=== PATIENT | male | born 1945 | race Caucasian/White ===

== ENCOUNTER 2023-05-30 16:53 | Emergency (ER) | payer OTHER ==
[~2023-05-30] VITALS: Ht 175.3 cm; Wt 76.2 kg
[~2023-05-30 16:53] MED LIST: AMLODIPINE BESYL5 MG; ATORVASTATIN CA20 MG PO; BACTRIM DS TAB1 EACH PO; CEFACLOR500 MG PO; COZAAR25 MG; HUMALOG100 U/M1 SQ; HUMULIN 70100 UNIT/2; INTESTINEX680 M1 PO; LEVEMIR100 U/ML SQ; LEVOTHYROXINE25 MCG; LOSARTAN-HCTZ1 EAC1; NORVASC2.5 M1; SIMVASTATIN20 MG; TAMS0.4C PO; ZOCOR5 MG
== END 2023-05-30 19:21 | disposition home or self-care (01) ==
LOC: ER 16:53
DX: T85.528A Displacement of other gastrointestinal prosthetic devices, implants and grafts, initial encounter (principal); Z88.8 Allergy status to other drugs, medicaments and biological substances; K59.00 Constipation, unspecified

== ENCOUNTER 2023-07-10 21:38 | Emergency (ER) | payer OTHER ==
[~2023-07-10] VITALS: Ht 175.3 cm; Wt 72.6 kg
== END 2023-07-11 00:11 | disposition home or self-care (01) ==
LOC: ER 21:38
DX: K94.23 Gastrostomy malfunction (principal); Z88.8 Allergy status to other drugs, medicaments and biological substances

== ENCOUNTER 2023-09-12 13:44 | Inpatient (IN) | payer OTHER ==
[~2023-09-12] VITALS: Ht 175.3 cm; Wt 74.8 kg
[2023-09-12] MEDS ORDERED: COZAAR100 MG PO (14:00)
[2023-09-12] MEDS ORDERED: LEVO-T50 MCG PO (14:03)
[2023-09-12] MEDS ORDERED: IRON325 MG PO (14:03)
[2023-09-12] MEDS ORDERED: AMLODIPINE-OLM1 EAC3 PO (14:03)
[2023-09-12] MEDS ORDERED: ATORVASTATIN CA10 MG PO (14:04)
[2023-09-12] MEDS ORDERED: 0.9 % SODIUM CHLORIDE 1,000 ML IV SCH ×2 (14:30→19:45)
[2023-09-12 15:50] LABS: HEMATOCRIT 28.3 % (39.0-48.0); MEAN CELL VOLUME 87.5 fL (80.0-100.00); MEAN CORPUSCULAR HGB CONC 32.2 g/dl (32.0-36.0); PLATELET COUNT 346 K/uL (150-450); RED BLOOD COUNT 3.24 M/uL (4.00-6.00)
[2023-09-12 15:51] LABS: HEMOGLOBIN 9.1 g/dL (13-16.00)
[2023-09-12 16:18] LABS: ALBUMIN 1.8 gm/dL (3.4-5.0); BILIRUBIN TOTAL 0.42 mg/dL (0.3-1.2); CALCIUM 10.7 mg/dL (8.5-10.1); CREATININE SERUM 1.73 mg/dL (0.70-1.30); GFR 38.39; TOTAL PROTEIN 6.8 gm/dL (6.4-8.2)
[2023-09-12 16:44] LABS: POTASSIUM 5.98 mEq/L (3.5-5.1)
[2023-09-12] MEDS ORDERED: PIPERACILLIN/TAZOBACTAM SODIUM 2.25 GM VIAL IV ONE (18:45)
[2023-09-12 18:53] LABS: URINE APPEARANCE Cloudy; URINE BILIRRUBIN Negative (NEGATIVE); URINE BLOOD Large; URINE COLOR Yellow; URINE LEUKOCYTE Large; URINE NITRATE Positive; URINE PROTEIN 30 (NEGATIVE); URINE UROBILINOGEN 0.2 E.U./dl
[2023-09-12 18:55] LABS: URINE BACTERIA 1757.5 uL (0.0-1933); URINE RBC 927.8 uL (0.0-20.8); URINE WBC 1510.2 uL (0.0-23.2)
[2023-09-12 18:58] LABS: URINE EPITHELIAL CELLS 0.6 uL (0.0-38.8); URINE GLUCOSE 500 MG/DL (NEGATIVE)
[2023-09-12] MEDS ORDERED: DEXTROSE 50 % IN WATER 0.5 G/ML DISP.SYRIN IV PRN (19:45)
[2023-09-12] MEDS ORDERED: INSULIN LISPRO 1,000 UNIT/10 ML UNITS SUBCUTANEO PRN (19:45)
[2023-09-12] MEDS ORDERED: ACETAMINOPHEN 500 MG GEL..CAP PO PRN (20:00)
[2023-09-12] MEDS ORDERED: MORPHINE SULFATE 4 MG/ML VIAL IV PRN (20:00)
[2023-09-12] MEDS ORDERED: ONDANSETRON HCL 4 MG in 0.9 % SODIUM CHLORIDE 50 ML IV PRN (20:00)
[2023-09-12] MEDS ORDERED: SODIUM POLYSTYRENE SULFONATE 15 G/4 TSP TSP PO SCH (20:02)
[2023-09-12] MEDS ORDERED: hydrALAZINE HCL 20 MG VIAL IV PRN (20:15)
[2023-09-12] MEDS ORDERED: FAMOTIDINE/PF 20 MG in 0.9 % SODIUM CHLORIDE 8 ML IV PUSH SCH (21:00)
[2023-09-13] MEDS ORDERED: PIPERACILLIN/TAZOBACTAM SODIUM 2.25 GM in DEXTROSE 5 % IN WATER 50 ML IV SCH
[2023-09-13] MEDS ORDERED: LEVOTHYROXINE SODIUM 50 MCG TABLET PO SCH (06:00)
[2023-09-13 08:37] LABS: URINE APPEARANCE Turbid; URINE BILIRRUBIN Negative (NEGATIVE); URINE BLOOD Large; URINE COLOR Red; URINE GLUCOSE Negative (NEGATIVE); URINE LEUKOCYTE Large; URINE NITRATE Negative; URINE PROTEIN Trace (NEGATIVE); URINE UROBILINOGEN 0.2 E.U./dl
[2023-09-13 08:41] LABS: URINE BACTERIA 7697.1 uL (0.0-1933); URINE EPITHELIAL CELLS 3.2 uL (0.0-38.8); URINE WBC 1322.3 uL (0.0-23.2)
[2023-09-13 08:50] LABS: URINE RBC > 10558.9 uL (0.0-20.8)
[2023-09-13 08:59] LABS: HEMATOCRIT 27.3 % (39.0-48.0); MEAN CELL VOLUME 87.8 fL (80.0-100.00); MEAN CORPUSCULAR HEMOGLOBIN 29.1 pg (27.00-32.0); MEAN CORPUSCULAR HGB CONC 33.1 g/dl (32.0-36.0); PLATELET COUNT 325 K/uL (150-450); RED BLOOD COUNT 3.11 M/uL (4.00-6.00); RED CELL DISTRIBUTION WIDTH 14.5 % (11.5-14.5)
[2023-09-13] MEDS ORDERED: ENOXAPARIN SODIUM 40 MG/0.4 ML SYRINGE SUBCUTANEO SCH (09:00)
[2023-09-13] MEDS ORDERED: ENOXAPARIN SODIUM 30 MG/0.3 ML SYRINGE SUBCUTANEO SCH (09:00)
[2023-09-13] MEDS ORDERED: AMLODIPINE BESYLATE 10 MG TABLET PO SCH (09:00)
[2023-09-13] MEDS ORDERED: ATORVASTATIN CALCIUM 10 MG TABLET PO SCH (09:00)
[2023-09-13] MEDS ORDERED: TAMSULOSIN HCL 0.4 MG CAP PO SCH (09:00)
[2023-09-13] MEDS ORDERED: LOSARTAN POTASSIUM 100 MG TABLET PO SCH (09:00)
[2023-09-13 09:15] LABS: INR 1.08; PARTIAL THROMBOPLASTIN TIME 25.1 SECONDS (22.0-34.0); PROTHROMBIN TIME 11.3 SECONDS (9.0-11.5)
[2023-09-13 09:17] LABS: ALBUMIN 1.9 gm/dL (3.4-5.0); BILIRUBIN TOTAL 0.32 mg/dL (0.3-1.2); BILIRUBIN,CONJUGATED 0.12 mg/dL (0.0-0.2); BILIRUBIN,UNCONJUGATED 0.2 mg/dL (0.0-0.6); CALCIUM 10.7 mg/dL (8.5-10.1); CREATININE SERUM 1.64 mg/dL (0.70-1.30); GFR 40.83; GLOBULINA 4.9 G/DL (2.4-3.5); TOTAL PROTEIN 6.8 gm/dL (6.4-8.2)
[2023-09-13 09:19] LABS: C-REACTIVE PROTEIN 7.89 MG/DL (0.00-0.29); POTASSIUM 5.92 mEq/L (3.5-5.1)
[2023-09-13 09:44] LABS: ERYTHROCYTE SEDIMENTATION RATE 94 mm/hr
[2023-09-13] MEDS ORDERED: CHLORHEXIDINE GLUCONATE 120 ML BOTTLE TOP SCH (13:19)
[2023-09-13] MEDS ORDERED: SODIUM CHLORIDE 0.45 % 1,000 ML IV SCH (13:30)
[2023-09-13] MEDS ORDERED: LACTULOSE 20 G/30 ML BLIST.PACK PO STA (15:07)
[2023-09-13] MEDS ORDERED: SODIUM POLYSTYRENE SULFONATE 15 G/4 TSP TSP PO STA (15:08)
[2023-09-13] MEDS ORDERED: NYSTATIN 30 GM,ZINC OXIDE 30 GM,SILVER SULFADIAZINE 50 GM TOP SCH (17:00)
[2023-09-13] MEDS ORDERED: INSULIN NPH HUM/REG INSULIN HM 1,000 UNIT/10 ML UNITS SUBCUTANEO STA (20:07)
[2023-09-14 06:17] LABS: MEAN CELL VOLUME 87.7 fL (80.0-100.00); MEAN CORPUSCULAR HGB CONC 33.4 g/dl (32.0-36.0); PLATELET COUNT 307 K/uL (150-450); RED BLOOD COUNT 2.67 M/uL (4.00-6.00); RED CELL DISTRIBUTION WIDTH 14.3 % (11.5-14.5)
[2023-09-14 06:20] LABS: HEMATOCRIT 23.4 % (39.0-48.0); HEMOGLOBIN 7.8 g/dL (13-16.00); MEAN CORPUSCULAR HEMOGLOBIN 29.2 pg (27.00-32.0)
[2023-09-14 07:12] LABS: ALBUMIN 1.7 gm/dL (3.4-5.0); BILIRUBIN TOTAL 0.23 mg/dL (0.3-1.2); CALCIUM 9.8 mg/dL (8.5-10.1); CREATININE SERUM 1.78 mg/dL (0.70-1.30); GFR 37.15; GLOBULINA 4.5 G/DL (2.4-3.5); POTASSIUM 4.99 mEq/L (3.5-5.1); TOTAL PROTEIN 6.2 gm/dL (6.4-8.2)
[2023-09-14] MEDS ORDERED: DOCUSATE SODIUM 100MG CAP PO SCH (09:00)
[2023-09-14] MEDS ORDERED: INSULIN NPH HUM/REG INSULIN HM 1,000 UNIT/10 ML UNITS SUBCUTANEO SCH ×2 (09:00→17:00)
[2023-09-14] MEDS ORDERED: FAMOTIDINE/PF 20 MG in 0.9 % SODIUM CHLORIDE 8 ML IV PUSH SCH (09:00)
[2023-09-14] MEDS ORDERED: AZITHROMYCIN 500 MG in 0.9 % SODIUM CHLORIDE 250 ML IV SCH (09:00)
[2023-09-15] MEDS ORDERED: PIPERACILLIN/TAZOBACTAM SODIUM 3.375 GM in 0.9 % SODIUM CHLORIDE 100 ML IV SCH
[2023-09-15] MEDS ORDERED: INSULIN NPH HUM/REG INSULIN HM 1,000 UNIT/10 ML UNITS SUBCUTANEO SCH ×2 (09:00→17:00)
[2023-09-16 04:49] LABS: HEMATOCRIT 28.5 % (39.0-48.0); MEAN CELL VOLUME 86.5 fL (80.0-100.00); MEAN CORPUSCULAR HGB CONC 33.2 g/dl (32.0-36.0); PLATELET COUNT 244 K/uL (150-450); RED BLOOD COUNT 3.29 M/uL (4.00-6.00); RED CELL DISTRIBUTION WIDTH 14.3 % (11.5-14.5)
[2023-09-16 04:50] LABS: MEAN CORPUSCULAR HEMOGLOBIN 28.5 pg (27.00-32.0)
[2023-09-16 04:52] LABS: HEMOGLOBIN 9.4 g/dL (13-16.00)
[2023-09-16 05:10] LABS: ALBUMIN 1.4 gm/dL (3.4-5.0); CALCIUM 7.8 mg/dL (8.5-10.1); CREATININE SERUM 1.26 mg/dL (0.70-1.30); GFR 55.35; PHOSPHOROUS 2.1 mg/dL (2.5-4.9); POTASSIUM 3.84 mEq/L (3.5-5.1)
[2023-09-16] MEDS ORDERED: AMLODIPINE BESYLATE 2.5 MG TABLET PO SCH (09:00)
[2023-09-17 07:10] LABS: CALCIUM 8.2 mg/dL (8.5-10.1); CREATININE SERUM 1.19 mg/dL (0.70-1.30); GFR 59.12; POTASSIUM 3.9 mEq/L (3.5-5.1)
[2023-09-17 07:21] LABS: ALBUMIN 1.4 gm/dL (3.4-5.0); CALCIUM 7.8 mg/dL (8.5-10.1); CREATININE SERUM 1.11 mg/dL (0.70-1.30); GFR 64.07; POTASSIUM 3.94 mEq/L (3.5-5.1)
[2023-09-17 07:33] LABS: PHOSPHOROUS 1.5 mg/dL (2.5-4.9)
[2023-09-17] MEDS ORDERED: NAPH,MB-DB/K PH,MBDB 1 PKT PACKET PO SCH (09:00)
[2023-09-17] MEDS ORDERED: CEFEPIME HCL 2,000 MG in 0.9 % SODIUM CHLORIDE 100 ML IV SCH (09:00)
[2023-09-17] MEDS ORDERED: POTASSIUM PHOS,M-BASIC-D-BASIC 3 MM/ML VIAL IV ONE (11:15)
[2023-09-17] MEDS ORDERED: DEXTROSE 5 % IN WATER 1,000 ML IV SCH (22:15)
[2023-09-18 05:58] LABS: ALBUMIN 1.5 gm/dL (3.4-5.0); BILIRUBIN TOTAL 0.24 mg/dL (0.3-1.2); CALCIUM 7.7 mg/dL (8.5-10.1); CREATININE SERUM 0.96 mg/dL (0.70-1.30); GFR 75.75; POTASSIUM 4.37 mEq/L (3.5-5.1); TOTAL PROTEIN 5.5 gm/dL (6.4-8.2)
[2023-09-19] MEDS ORDERED: 0.9 % SODIUM CHLORIDE 10 ML VIAL IJ ONE (07:57)
[2023-09-19] MEDS ORDERED: DEXTROSE 5 % IN WATER 1,000 ML IV SCH (11:45)
[2023-09-19] MEDS ORDERED: INSULIN NPH HUM/REG INSULIN HM 1,000 UNIT/10 ML UNITS SUBCUTANEO SCH (17:00)
[2023-09-20 10:07] LABS: HEMATOCRIT 32.4 % (39.0-48.0); HEMOGLOBIN 10.6 g/dL (13-16.00); MEAN CELL VOLUME 86.4 fL (80.0-100.00); MEAN CORPUSCULAR HEMOGLOBIN 28.2 pg (27.00-32.0); MEAN CORPUSCULAR HGB CONC 32.7 g/dl (32.0-36.0); PLATELET COUNT 222 K/uL (150-450); RED BLOOD COUNT 3.74 M/uL (4.00-6.00); RED CELL DISTRIBUTION WIDTH 15.2 % (11.5-14.5)
[2023-09-20 10:40] LABS: CALCIUM 8.2 mg/dL (8.5-10.1); CREATININE SERUM 1.14 mg/dL (0.70-1.30); GFR 62.12; POTASSIUM 5.55 mEq/L (3.5-5.1)
[2023-09-20 10:46] LABS: PHOSPHOROUS 1.9 mg/dL (2.5-4.9)
[2023-09-20] MEDS ORDERED: SODIUM POLYSTYRENE SULFONATE 15 G/4 TSP TSP PO ONE (11:30)
[2023-09-21] MEDS ORDERED: PIPERACILLIN/TAZOBACTAM SODIUM 4.5 GM in 0.9 % SODIUM CHLORIDE 100 ML IV SCH
[2023-09-21] MEDS ORDERED: SODIUM CHLORIDE 0.45 % 1,000 ML IV SCH (05:45)
[2023-09-21 07:47] LABS: CALCIUM 8.3 mg/dL (8.5-10.1); CREATININE SERUM 0.99 mg/dL (0.70-1.30); GFR 73.11; POTASSIUM 4.87 mEq/L (3.5-5.1)
[2023-09-21] MEDS ORDERED: INSULIN NPH HUM/REG INSULIN HM 1,000 UNIT/10 ML UNITS SUBCUTANEO SCH (09:00)
[2023-09-21] MEDS ORDERED: HALOPERIDOL LACTATE 5 MG/ML AMPUL IV PRN (20:45)
[2023-09-22 13:50] LABS: ABG PH 7.358 (7.35-7.45); ABG PO2 73.8 mmHg (80-100); ABG pCO2 43.8 mmHg (35-45); BASE EXCESS -1.6 mmol/l; BICARBONATE 24.1 mmol/l (23-25); SaO2 93.8 %; Tco2 25.4 mmol/l; o2 32 %; puncture site RADIAL RIGHT
[2023-09-22 13:51] LABS: allen test SATISFACTORY
[2023-09-22 14:43] LABS: HEMATOCRIT 27.2 % (39.0-48.0); MEAN CORPUSCULAR HEMOGLOBIN 28.7 pg (27.00-32.0); PLATELET COUNT 190 K/uL (150-450); RED BLOOD COUNT 3.13 M/uL (4.00-6.00); RED CELL DISTRIBUTION WIDTH 15.6 % (11.5-14.5)
[2023-09-22 15:12] LABS: ALBUMIN 1.2 gm/dL (3.4-5.0); BILIRUBIN TOTAL 0.22 mg/dL (0.3-1.2); CALCIUM 7.8 mg/dL (8.5-10.1); CREATININE SERUM 1.15 mg/dL (0.70-1.30); GFR 61.5; GLOBULINA 3.6 G/DL (2.4-3.5); POTASSIUM 4.87 mEq/L (3.5-5.1); TOTAL PROTEIN 4.8 gm/dL (6.4-8.2)
[2023-09-22] MEDS ORDERED: HALOPERIDOL LACTATE 5 MG/ML AMPUL IV PRN (18:46)
[2023-09-22] MEDS ORDERED: POTASSIUM PHOS,M-BASIC-D-BASIC 18 MM in 0.9 % SODIUM CHLORIDE 250 ML IV NR (19:15)
[2023-09-23 06:21] LABS: HEMATOCRIT 30.1 % (39.0-48.0); HEMOGLOBIN 10.1 g/dL (13-16.00); MEAN CORPUSCULAR HEMOGLOBIN 28.8 pg (27.00-32.0); MEAN CORPUSCULAR HGB CONC 33.5 g/dl (32.0-36.0); PLATELET COUNT 190 K/uL (150-450); RED CELL DISTRIBUTION WIDTH 15.5 % (11.5-14.5)
[2023-09-23 07:06] LABS: ALBUMIN 1.5 gm/dL (3.4-5.0); BILIRUBIN TOTAL 0.74 mg/dL (0.3-1.2); C-REACTIVE PROTEIN 2.23 MG/DL (0.00-0.29); CALCIUM 8.3 mg/dL (8.5-10.1); CREATININE SERUM 1.12 mg/dL (0.70-1.30); GFR 63.41; GLOBULINA 4.1 G/DL (2.4-3.5); PHOSPHOROUS 3.5 mg/dL (2.5-4.9); POTASSIUM 5.65 mEq/L (3.5-5.1); TOTAL PROTEIN 5.6 gm/dL (6.4-8.2)
[2023-09-23] MEDS ORDERED: LORazepam 2 MG/ML VIAL IV ONE (10:00)
[2023-09-24] MEDS ORDERED: AMINO ACIDS/PROTEIN HYDROLYS 30 ML BLIST.PACK PO SCH (09:00)
[2023-09-25 06:58] LABS: CALCIUM 8.6 mg/dL (8.5-10.1); CREATININE SERUM 1.16 mg/dL (0.70-1.30); GFR 60.89; POTASSIUM 4.93 mEq/L (3.5-5.1)
== END 2023-09-25 14:27 | disposition home or self-care (01) | DRG 689 ==
LOC: ER 13:44 → MEDJ 20:40
PROVIDERS: General Practice; Internal Medicine Nephrology; Student in an Organized Health Care Education/Training Program; ADMIT Internal Medicine; ATTEND Internal Medicine
PROC: BW21ZZZ Computerized Tomography (CT Scan) of Abdomen and Pelvis (ICD-10-PCS; principal; 2023-09-12)
PROC: 4A12X4Z Monitoring of Cardiac Electrical Activity, External Approach (ICD-10-PCS; 2023-09-12)
PROC: 30233N1 Transfusion of Nonautologous Red Blood Cells into Peripheral Vein, Percutaneous Approach (ICD-10-PCS; 2023-09-15)
PROC: B020ZZZ Computerized Tomography (CT Scan) of Brain (ICD-10-PCS; 2023-09-21)
PROC: B030YZZ Magnetic Resonance Imaging (MRI) of Brain using Other Contrast (ICD-10-PCS; 2023-09-22)
PROC: B030ZZZ Magnetic Resonance Imaging (MRI) of Brain (ICD-10-PCS; 2023-09-22)
PROC: 02HV33Z Insertion of Infusion Device into Superior Vena Cava, Percutaneous Approach (ICD-10-PCS; 2023-09-22)
DX: N39.0 Urinary tract infection, site not specified (principal); J18.1 Lobar pneumonia, unspecified organism; N17.9 Acute kidney failure, unspecified; E87.0 Hyperosmolality and hypernatremia; F02.811 Dementia in other diseases classified elsewhere, unspecified severity, with agitation; G93.40 Encephalopathy, unspecified; K94.22 Gastrostomy infection; B37.89 Other sites of candidiasis; E11.65 Type 2 diabetes mellitus with hyperglycemia; G30.0 Alzheimer's disease with early onset; E86.0 Dehydration; K56.41 Fecal impaction; R13.19 Other dysphagia; D64.89 Other specified anemias; G31.89 Other specified degenerative diseases of nervous system; I12.9 Hypertensive chronic kidney disease with stage 1 through stage 4 chronic kidney disease, or unspecified chronic kidney disease; E11.22 Type 2 diabetes mellitus with diabetic chronic kidney disease; N18.9 Chronic kidney disease, unspecified; E03.9 Hypothyroidism, unspecified; D63.1 Anemia in chronic kidney disease; Z79.4 Long term (current) use of insulin; Z74.01 Bed confinement status; B96.5 Pseudomonas (aeruginosa) (mallei) (pseudomallei) as the cause of diseases classified elsewhere; B96.4 Proteus (mirabilis) (morganii) as the cause of diseases classified elsewhere; B95.2 Enterococcus as the cause of diseases classified elsewhere; B96.1 Klebsiella pneumoniae [K. pneumoniae] as the cause of diseases classified elsewhere
CPT/HCPCS: 70552

== ENCOUNTER 2024-02-12 19:22 | Inpatient (IN) | payer OTHER ==
[~2024-02-12] VITALS: Ht 152.4 cm; Wt 77.1 kg
[~2024-02-12 19:22] MED LIST changes: +AMLODIPINE-OLM1 EAC3 PO; +ATORVASTATIN CA10 MG PO; +COZAAR100 MG PO; +IRON325 MG PO; +LEVO-T50 MCG PO
[2024-02-12] MEDS ORDERED: LEVALBUTEROL HCL 0.63 MG/3 ML SOLUTION IH ONE ×2 (19:55→22:31)
[2024-02-12 19:58] LABS: HEMATOCRIT 27.7 % (39.0-48.0); MEAN CELL VOLUME 90.9 fL (80.0-100.00); MEAN CORPUSCULAR HEMOGLOBIN 29.6 pg (27.00-32.0); MEAN CORPUSCULAR HGB CONC 32.5 g/dl (32.0-36.0); PLATELET COUNT 306 K/uL (150-450); RED BLOOD COUNT 3.05 M/uL (4.00-6.00); RED CELL DISTRIBUTION WIDTH 15.6 % (11.5-14.5)
[2024-02-12] MEDS ORDERED: LEVALBUTEROL HCL 0.63 MG/3 ML SOLUTION IH SCH ×2 (20:15→21:00)
[2024-02-12] MEDS ORDERED: DEXTROSE 50 % IN WATER 0.5 G/ML DISP.SYRIN IV PRN (20:15)
[2024-02-12] MEDS ORDERED: INSULIN LISPRO 1,000 UNIT/10 ML UNITS SUBCUTANEO PRN (20:15)
[2024-02-12] MEDS ORDERED: CEFTRIAXONE SODIUM 1,000 MG VIAL IV ONE (20:15)
[2024-02-12] MEDS ORDERED: 0.9 % SODIUM CHLORIDE 1,000 ML IV SCH (20:15)
[2024-02-12] MEDS ORDERED: METHYLPREDNISOLONE SOD SUCC 40 MG VIAL IV ONE (20:15)
[2024-02-12 20:19] LABS: INR 1.08; PARTIAL THROMBOPLASTIN TIME 24.7 SECONDS (22.0-34.0); PROTHROMBIN TIME 11.7 SECONDS (9.0-11.5)
[2024-02-12 20:23] LABS: ALBUMIN 1.8 gm/dL (3.4-5.0); BILIRUBIN TOTAL 0.28 mg/dL (0.3-1.2); CALCIUM 9.2 mg/dL (8.5-10.1); CREATININE SERUM 1.91 mg/dL (0.70-1.30); GFR 34.25; GLOBULINA 5.2 G/DL (2.4-3.5); POTASSIUM 5.38 mEq/L (3.5-5.1)
[2024-02-12] MEDS ORDERED: BUDESONIDE 0.5 MG/2 ML AMPUL.NEB IH SCH (21:00)
[2024-02-12] MEDS ORDERED: CEFTRIAXONE SODIUM 1,000 MG VIAL ONE (21:09)
[2024-02-12 21:16] LABS: URINE APPEARANCE Turbid; URINE BILIRRUBIN Negative (NEGATIVE); URINE BLOOD Small; URINE COLOR Yellow; URINE GLUCOSE Negative (NEGATIVE); URINE KETONE Negative (NEGATIVE); URINE LEUKOCYTE Large; URINE NITRATE Negative; URINE UROBILINOGEN 0.2 E.U./dl
[2024-02-12 21:17] LABS: URINE CAST 7.02 uL (0.0-1.40); URINE EPITHELIAL CELLS 22.7 uL (0.0-38.8); URINE RBC 4.7 uL (0.0-20.8)
[2024-02-12 21:36] LABS: URINE BACTERIA > 9821.5 uL (0.0-1933); URINE PROTEIN 100 (NEGATIVE); URINE WBC > 5548.3 uL (0.0-23.2)
[2024-02-12] MEDS ORDERED: BUDESONIDE 0.5 MG/2 ML AMPUL.NEB IH ONE (22:30)
[2024-02-12] MEDS ORDERED: PROPOFOL 10,000 MCG/ML VIAL ONE (23:14)
[2024-02-12] MEDS ORDERED: PROPOFOL 10,000 MCG/ML VIAL IV ONE (23:15)
[2024-02-12 23:23] LABS: ABG PH 7.415 (7.35-7.45); ABG PO2 173.4 mmHg (80-100); ABG pCO2 50.4 mmHg (35-45); BASE EXCESS 5.7 mmol/l; BICARBONATE 31.6 mmol/l (23-25); Tco2 33.2 mmol/l; o2 32 %
[2024-02-12 23:24] LABS: allen test SATISFACTORY; puncture site BRADIAL LEFT
[2024-02-12 23:25] LABS: SaO2 99.6 %
[2024-02-12] MEDS ORDERED: FLUMAZENIL 0.5 MG/5 ML ML IV ONE ×2 (23:45→23:51)
[2024-02-12] MEDS ORDERED: MIDAZOLAM HCL/PF 5 MG/ML VIAL IV ONE (23:45)
[2024-02-13] VITALS (11 sets, daily range): BP systolic 94–134; BP diastolic 51–66; O2SAT 100
[2024-02-13] MEDS ORDERED: 0.9 % SODIUM CHLORIDE 1,000 ML IV SCH (00:15)
[2024-02-13] MEDS ORDERED: DEXTROSE 50 % IN WATER 0.5 G/ML DISP.SYRIN IV PRN (00:15)
[2024-02-13] MEDS ORDERED: INSULIN LISPRO 1,000 UNIT/10 ML UNITS SUBCUTANEO PRN (00:15)
[2024-02-13] MEDS ORDERED: PIPERACILLIN/TAZOBACTAM SODIUM 3.375 GM in 0.9 % SODIUM CHLORIDE 100 ML IV SCH (00:28)
[2024-02-13] MEDS ORDERED: hydrALAZINE HCL 20 MG VIAL IV PRN (00:30)
[2024-02-13] MEDS ORDERED: ONDANSETRON HCL 4 MG in 0.9 % SODIUM CHLORIDE 50 ML IV PRN (00:30)
[2024-02-13] MEDS ORDERED: ACETAMINOPHEN 650 MG SUPP.RECT RECTAL PRN (00:30)
[2024-02-13] MEDS ORDERED: MORPHINE SULFATE 2 MG/ML CARTRIDGE IV PRN (00:30)
[2024-02-13] MEDS ORDERED: NOREPINEPHRINE BITARTRATE 8 MG in DEXTROSE 5 % IN WATER 250 ML IV SCH ×2 (00:45→08:30)
[2024-02-13] MEDS ORDERED: PIPERACILLIN/TAZOBACTAM SODIUM 3.375 GM VIAL IV ONE (00:46)
[2024-02-13] MEDS ORDERED: LEVALBUTEROL HCL 0.63 MG/3 ML SOLUTION IH ONE ×2 (00:47→08:53)
[2024-02-13] MEDS ORDERED: PROPOFOL 100 ML IV SCH ×2 (01:15→08:30)
[2024-02-13 02:45] LABS: CKMB 1.6 NG/ML (0.5-3.6)
[2024-02-13 03:44] LABS: ABG PH 7.398 (7.35-7.45); ABG PO2 437.3 mmHg (80-100); ABG pCO2 48.3 mmHg (35-45); BASE EXCESS 3.4 mmol/l; BICARBONATE 29.1 mmol/l (23-25); Tco2 30.6 mmol/l
[2024-02-13 03:45] LABS: allen test SATISFACTORY; o2 100 %; puncture site RADIAL RIGHT
[2024-02-13] MEDS ORDERED: PROPOFOL 10,000 MCG/ML VIAL IV PUSH ONE (07:00)
[2024-02-13] MEDS ORDERED: ENOXAPARIN SODIUM 40 MG/0.4 ML SYRINGE SUBCUTANEO ONE (08:20)
[2024-02-13] MEDS ORDERED: INSULIN LISPRO 1,000 UNIT/10 ML UNITS SUBCUTANEO ONE ×3 (08:21→16:14)
[2024-02-13] MEDS ORDERED: FAMOTIDINE/PF 20 MG/2 ML VIAL ONE (08:22)
[2024-02-13 08:41] LABS: ABG PH 7.412 (7.35-7.45); ABG pCO2 42.6 mmHg (35-45); BASE EXCESS 1.7 mmol/l; BICARBONATE 26.6 mmol/l (23-25); Tco2 27.9 mmol/l
[2024-02-13] MEDS ORDERED: BUDESONIDE 0.5 MG/2 ML AMPUL.NEB IH ONE (08:53)
[2024-02-13] MEDS ORDERED: CHLORHEXIDINE GLUCONATE 120 ML BOTTLE TOP ONE (08:55)
[2024-02-13] MEDS ORDERED: ENOXAPARIN SODIUM 40 MG/0.4 ML SYRINGE SUBCUTANEO SCH (09:00)
[2024-02-13] MEDS ORDERED: FAMOTIDINE/PF 20 MG in 0.9 % SODIUM CHLORIDE 8 ML IV PUSH SCH (09:00)
[2024-02-13 09:30] LABS: ALBUMIN 1.8 gm/dL (3.4-5.0); BILIRUBIN TOTAL 0.28 mg/dL (0.3-1.2); CALCIUM 9.6 mg/dL (8.5-10.1); CREATININE SERUM 1.85 mg/dL (0.70-1.30); GFR 35.53; POTASSIUM 4.83 mEq/L (3.5-5.1); TOTAL PROTEIN 7.8 gm/dL (6.4-8.2)
[2024-02-13 09:34] LABS: CKMB 1.9 NG/ML (0.5-3.6)
[2024-02-13 12:47] LABS: allen test SATISFACTORY; o2 100 %; puncture site RADIAL RIGHT
[2024-02-13 19:09] LABS: CKMB 2.4 NG/ML (0.5-3.6)
[2024-02-13] MEDS ORDERED: INSULIN NPH HUMAN ISOPHANE 1,000 UNITS/10 ML UNITS SUBCUTANEO SCH (21:00)
[2024-02-14] VITALS (14 sets, daily range): BP systolic 88–133; BP diastolic 53–71; O2SAT 100
[2024-02-14] MEDS ORDERED: POLYVINYL ALCOHOL 15 ML DROPS OP SCH (03:06)
[2024-02-14] MEDS ORDERED: CHLORHEXIDINE GLUCONATE 15ML BRUSH KIT MM SCH (03:06)
[2024-02-14] MEDS ORDERED: LEVOTHYROXINE SODIUM 50 MCG TABLET PO SCH (06:00)
[2024-02-14 08:25] LABS: INR 1.03; PARTIAL THROMBOPLASTIN TIME 24.5 SECONDS (22.0-34.0); PROTHROMBIN TIME 11.2 SECONDS (9.0-11.5)
[2024-02-14 08:35] LABS: HEMATOCRIT 25.2 % (39.0-48.0); MEAN CELL VOLUME 90.2 fL (80.0-100.00); MEAN CORPUSCULAR HGB CONC 33.2 g/dl (32.0-36.0); PLATELET COUNT 309 K/uL (150-450); RED BLOOD COUNT 2.79 M/uL (4.00-6.00); RED CELL DISTRIBUTION WIDTH 15.5 % (11.5-14.5)
[2024-02-14 08:36] LABS: PH,URINE 5.5 (5.0-8.0); URINE APPEARANCE Turbid; URINE BACTERIA 7092.4 uL (0.0-1933); URINE BILIRRUBIN Negative (NEGATIVE); URINE BLOOD Large; URINE COLOR Yellow; URINE EPITHELIAL CELLS 14.3 uL (0.0-38.8); URINE GLUCOSE Negative (NEGATIVE); URINE KETONE Negative (NEGATIVE); URINE LEUKOCYTE Large; URINE NITRATE Negative; URINE RBC 1042.7 uL (0.0-20.8); URINE UROBILINOGEN 0.2 E.U./dl; URINE WBC 1166.2 uL (0.0-23.2)
[2024-02-14 08:41] LABS: HEMOGLOBIN 8.4 g/dL (13-16.00); MEAN CORPUSCULAR HEMOGLOBIN 30.1 pg (27.00-32.0)
[2024-02-14 08:46] LABS: ALBUMIN 1.8 gm/dL (3.4-5.0); ALKALINE PHOSPHATASE 57 U/L (50-136); ALT/SGPT 23 U/L (12-78); AMYLASE 89 U/L (25-115); AST/SGOT 11 U/L (15-37); BILIRUBIN TOTAL 0.29 mg/dL (0.3-1.2); BILIRUBIN,CONJUGATED < 0.10 mg/dL (0.0-0.2); BILIRUBIN,UNCONJUGATED 0.19 mg/dL (0.0-0.6); CALCIUM 9.1 mg/dL (8.5-10.1); CARBON DIOXIDE 29 mEq/L (21-32); CHOL HDL RATIO 3.4 (0-5.0); CHOLESTEROL 114 mg/dL (0-200); CREATININE SERUM 1.77 mg/dL (0.70-1.30); GFR 37.39; GLOBULINA 4.9 G/DL (2.4-3.5); GLUCOSE FASTING 125 mg/dL (65-100); HDL 34 mg/dl (40-60); LDL 52 mg/dl (0-130); LIPASE 29 U/L (13-75); POTASSIUM 4.79 mEq/L (3.5-5.1); TOTAL PROTEIN 6.7 gm/dL (6.4-8.2); TRIGLYCERIDES 140 mg/dL (0-150); VLDL 28 (0-39)
[2024-02-14 08:58] LABS: ANION GAP 10 (10.0-20.0); BUN CREA RATIO 73 (7.0-25.0); OSMOLALITY SERUM 345 MOSM/KG (275-295)
[2024-02-14 09:00] LABS: BLOOD UREA NITROGEN 130 mg/dL (7-18); SODIUM 152 mmol/L (136-145)
[2024-02-14] MEDS ORDERED: CARBOXYMETHYLCELLULOSE SODIUM 1 EACH DROPERETTE OP SCH (09:00)
[2024-02-14] MEDS ORDERED: FAMOTIDINE/PF 20 MG in 0.9 % SODIUM CHLORIDE 8 ML IV PUSH SCH (09:00)
[2024-02-14 09:14] LABS: URINE CAST > 21.83 uL (0.0-1.40); URINE PROTEIN 300 (NEGATIVE)
[2024-02-14] MEDS ORDERED: DEXTROSE 5 % IN WATER 1,000 ML IV SCH (09:30)
[2024-02-14 10:09] LABS: ABG PH 7.419 (7.35-7.45); ABG PO2 152.7 mmHg (80-100); ABG pCO2 45.2 mmHg (35-45); BASE EXCESS 3.4 mmol/l; BICARBONATE 28.6 mmol/l (23-25); SaO2 99.4 %
[2024-02-14 10:10] LABS: allen test SATISFACTORY; o2 50 %; puncture site RADIAL RIGHT
[2024-02-14 11:34] LABS: ERYTHROCYTE SEDIMENTATION RATE > 130 mm/hr
[2024-02-14 12:08] LABS: C-REACTIVE PROTEIN 6.23 MG/DL (0.00-0.29); CHLORIDE 118 mmol/L (98-107)
[2024-02-14] MEDS ORDERED: IPRATROPIUM/ALBUTEROL SULFATE 3 ML AMPUL.NEB IH SCH (13:00)
[2024-02-14] MEDS ORDERED: METHYLPREDNISOLONE SOD SUCC 40 MG VIAL IV SCH (13:00)
[2024-02-14] MEDS ORDERED: MEROPENEM 500 MG/VIAL VIAL IV SCH (17:00)
[2024-02-15 04:00] VITALS: BP 134/68; O2SAT 100
[2024-02-15 07:29] VITALS: BP 137/77; O2SAT 100
[2024-02-15 10:20] LABS: ALBUMIN 1.9 gm/dL (3.4-5.0); BILIRUBIN TOTAL 0.28 mg/dL (0.3-1.2); CALCIUM 9.2 mg/dL (8.5-10.1); CREATININE SERUM 1.54 mg/dL (0.70-1.30); GFR 43.91; POTASSIUM 3.97 mEq/L (3.5-5.1); TOTAL PROTEIN 6.9 gm/dL (6.4-8.2)
[2024-02-15 10:22] LABS: ABG PH 7.365 (7.35-7.45); ABG PO2 89.2 mmHg (80-100); ABG pCO2 51.2 mmHg (35-45); BASE EXCESS 2.2 mmol/l; BICARBONATE 28.6 mmol/l (23-25); SaO2 98.1 %; Tco2 30.2 mmol/l
[2024-02-15 10:23] LABS: o2 35 %; puncture site RADIAL RIGHT
[2024-02-15 10:24] LABS: allen test SATISFACTORY
[2024-02-15 10:24] LABS: HEMATOCRIT 25.4 % (39.0-48.0); MEAN CELL VOLUME 89.7 fL (80.0-100.00); MEAN CORPUSCULAR HGB CONC 32.9 g/dl (32.0-36.0); PLATELET COUNT 276 K/uL (150-450); RED BLOOD COUNT 2.83 M/uL (4.00-6.00); RED CELL DISTRIBUTION WIDTH 15.9 % (11.5-14.5)
[2024-02-15 10:30] LABS: HEMOGLOBIN 8.3 g/dL (13-16.00); MEAN CORPUSCULAR HEMOGLOBIN 29.3 pg (27.00-32.0)
[2024-02-15 12:00] VITALS: BP 124/54; O2SAT 100
[2024-02-15 15:39] VITALS: BP 129/59; O2SAT 100
[2024-02-15 20:00] VITALS: BP 124/65; O2SAT 100
[2024-02-15 23:27] VITALS: BP 140/67; O2SAT 100
[2024-02-16 04:00] VITALS: BP 152/70; O2SAT 100
[2024-02-16 07:09] VITALS: BP 129/64; O2SAT 100
[2024-02-16 07:18] LABS: ALBUMIN 1.8 gm/dL (3.4-5.0); CALCIUM 8.8 mg/dL (8.5-10.1); CREATININE SERUM 1.31 mg/dL (0.70-1.30); GFR 52.92; PHOSPHOROUS 3.2 mg/dL (2.5-4.9); POTASSIUM 3.84 mEq/L (3.5-5.1)
[2024-02-16 08:44] LABS: ABG PH 7.434 (7.35-7.45); ABG PO2 178.7 mmHg (80-100); ABG pCO2 40.3 mmHg (35-45); BASE EXCESS 2.1 mmol/l; BICARBONATE 26.4 mmol/l (23-25); SaO2 99.6 %; Tco2 27.6 mmol/l
[2024-02-16 09:44] LABS: allen test SATISFACTORY; o2 35 %; puncture site RADIAL RIGHT
[2024-02-16 11:06] LABS: ABG PH 7.432 (7.35-7.45); ABG pCO2 36.9 mmHg (35-45); BASE EXCESS 0.2 mmol/l; BICARBONATE 24.1 mmol/l (23-25); SaO2 99.6 %; Tco2 25.2 mmol/l
[2024-02-16] MEDS ORDERED: ALBUTEROL SULFATE 3 ML/2.5 MG AMPUL.NEB IH STA (11:19)
[2024-02-16] MEDS ORDERED: RACEPINEPHRINE HCL 0.5 ML AMPUL IH NR (11:30)
[2024-02-16] MEDS ORDERED: RACEPINEPHRINE HCL 0.5 ML AMPUL IH ONE (11:47)
[2024-02-16 12:00] VITALS: BP 144/78; O2SAT 100
[2024-02-16 12:29] LABS: allen test SATISFACTORY; o2 35 %; puncture site RADIAL RIGHT
[2024-02-16 13:23] LABS: ABG PO2 152.5 mmHg (80-100); ABG pCO2 40.5 mmHg (35-45); SaO2 99.3 %
[2024-02-16 13:24] LABS: BASE EXCESS 0.4 mmol/l; BICARBONATE 25.1 mmol/l (23-25); Tco2 26.3 mmol/l; allen test SATISFACTORY; o2 36 %; puncture site RADIAL RIGHT
[2024-02-16] MEDS ORDERED: ACETAMINOPHEN 500 MG GEL..CAP PO PRN (15:00)
[2024-02-16 15:23] VITALS: BP 148/77; O2SAT 100
[2024-02-16 20:00] VITALS: BP 137/67; O2SAT 100
[2024-02-16 23:48] VITALS: BP 144/74; O2SAT 100
[2024-02-17] VITALS (7 sets, daily range): BP systolic 113–149; BP diastolic 57–80; O2SAT 100
[2024-02-17 06:58] LABS: MEAN CELL VOLUME 88.7 fL (80.0-100.00); MEAN CORPUSCULAR HGB CONC 33.6 g/dl (32.0-36.0); PLATELET COUNT 228 K/uL (150-450); RED BLOOD COUNT 2.58 M/uL (4.00-6.00); RED CELL DISTRIBUTION WIDTH 15.2 % (11.5-14.5)
[2024-02-17 07:09] LABS: HEMATOCRIT 22.9 % (39.0-48.0); MEAN CORPUSCULAR HEMOGLOBIN 29.8 pg (27.00-32.0)
[2024-02-17 07:10] LABS: HEMOGLOBIN 7.7 g/dL (13-16.00)
[2024-02-17] MEDS ORDERED: INSULIN NPH HUMAN ISOPHANE 1,000 UNITS/10 ML UNITS SUBCUTANEO SCH ×2 (09:00→21:00)
[2024-02-17] MEDS ORDERED: METHYLPREDNISOLONE SOD SUCC 40 MG VIAL IV SCH (21:00)
[2024-02-18 04:08] VITALS: BP 139/70; O2SAT 100
[2024-02-18 06:49] LABS: HEMATOCRIT 24.7 % (39.0-48.0); HEMOGLOBIN 8.3 g/dL (13-16.00); MEAN CELL VOLUME 89.7 fL (80.0-100.00); MEAN CORPUSCULAR HEMOGLOBIN 30.1 pg (27.00-32.0); MEAN CORPUSCULAR HGB CONC 33.5 g/dl (32.0-36.0); PLATELET COUNT 259 K/uL (150-450); RED BLOOD COUNT 2.75 M/uL (4.00-6.00)
[2024-02-18 07:18] VITALS: BP 132/59; O2SAT 100
[2024-02-18 07:19] LABS: ALBUMIN 1.7 gm/dL (3.4-5.0); BILIRUBIN TOTAL 0.31 mg/dL (0.3-1.2); CALCIUM 8.5 mg/dL (8.5-10.1); CREATININE SERUM 0.97 mg/dL (0.70-1.30); GFR 74.85; GLOBULINA 3.9 G/DL (2.4-3.5); POTASSIUM 4.08 mEq/L (3.5-5.1); TOTAL PROTEIN 5.6 gm/dL (6.4-8.2)
[2024-02-18 12:22] VITALS: BP 120/52; O2SAT 100
[2024-02-18 15:28] VITALS: BP 129/66; O2SAT 100
[2024-02-18] MEDS ORDERED: MEROPENEM 500 MG/VIAL VIAL IV SCH (18:00)
[2024-02-18] MEDS ORDERED: FAMOTIDINE/PF 20 MG in 0.9 % SODIUM CHLORIDE 8 ML IV PUSH SCH (21:00)
[2024-02-18 21:55] VITALS: BP 160/82
[2024-02-18] MEDS ORDERED: SODIUM CHLORIDE 0.45 % 1,000 ML IV SCH (22:00)
[2024-02-19 02:19] VITALS: BP 153/80; O2SAT 100
[2024-02-19 06:50] VITALS: BP 146/80; O2SAT 98
[2024-02-19] MEDS ORDERED: FAMOTIDINE/PF 20 MG/2 ML VIAL ONE ×2 (08:06→16:50)
[2024-02-19 09:11] VITALS: BP 155/73; O2SAT 98
[2024-02-19 19:03] VITALS: BP 140/64
[2024-02-20 03:36] VITALS: BP 174/71; O2SAT 100
[2024-02-20] MEDS ORDERED: FAMOTIDINE/PF 20 MG/2 ML VIAL ONE ×2 (08:26→20:51)
[2024-02-20] MEDS ORDERED: INSULIN NPH HUM/REG INSULIN HM 1,000 UNIT/10 ML UNITS SUBCUTANEO SCH ×2 (09:00→17:00)
[2024-02-20 10:22] VITALS: BP 139/69
[2024-02-20 10:36] LABS: MEAN CELL VOLUME 90.1 fL (80.0-100.00); MEAN CORPUSCULAR HEMOGLOBIN 29.7 pg (27.00-32.0); PLATELET COUNT 254 K/uL (150-450); RED BLOOD COUNT 2.89 M/uL (4.00-6.00); RED CELL DISTRIBUTION WIDTH 15.7 % (11.5-14.5)
[2024-02-20 11:09] LABS: HEMOGLOBIN 8.6 g/dL (13-16.00)
[2024-02-20 11:13] LABS: CALCIUM 8.7 mg/dL (8.5-10.1); CREATININE SERUM 1.01 mg/dL (0.70-1.30); GFR 71.44; POTASSIUM 4.88 mEq/L (3.5-5.1)
[2024-02-20 19:07] VITALS: BP 140/75; O2SAT 100
[2024-02-20 23:59] VITALS: BP 120/74; O2SAT 100
[2024-02-21 02:05] VITALS: BP 129/63; BP 166/71; O2SAT 94; O2SAT 99
[2024-02-21] MEDS ORDERED: FAMOTIDINE/PF 20 MG/2 ML VIAL ONE (08:37)
[2024-02-21 09:28] VITALS: BP 140/77
[2024-02-21 20:27] VITALS: BP 134/67; O2SAT 100
[2024-02-22 01:54] VITALS: BP 145/61; O2SAT 98
[2024-02-22 07:51] LABS: HEMATOCRIT 24.5 % (39.0-48.0); MEAN CELL VOLUME 89.3 fL (80.0-100.00); MEAN CORPUSCULAR HGB CONC 33.6 g/dl (32.0-36.0); PLATELET COUNT 147 K/uL (150-450); RED BLOOD COUNT 2.75 M/uL (4.00-6.00); RED CELL DISTRIBUTION WIDTH 15.5 % (11.5-14.5)
[2024-02-22 07:52] LABS: MEAN CORPUSCULAR HEMOGLOBIN 29.8 pg (27.00-32.0)
[2024-02-22 07:53] LABS: HEMOGLOBIN 8.2 g/dL (13-16.00)
[2024-02-22 09:42] VITALS: BP 148/72
[2024-02-22 16:00] VITALS: BP 133/82
[2024-02-22 21:00] VITALS: BP 133/82
[2024-02-23 02:20] VITALS: BP 156/81
[2024-02-23 18:31] VITALS: BP 127/77; O2SAT 97
[2024-02-24 02:00] VITALS: BP 168/63
[2024-02-24 08:56] VITALS: BP 120/67
[2024-02-24 18:28] VITALS: BP 144/83; O2SAT 98
[2024-02-24 20:16] LABS: HEMATOCRIT 23.9 % (39.0-48.0); MEAN CORPUSCULAR HGB CONC 33.2 g/dl (32.0-36.0); PLATELET COUNT 143 K/uL (150-450); RED BLOOD COUNT 2.65 M/uL (4.00-6.00); RED CELL DISTRIBUTION WIDTH 15.8 % (11.5-14.5)
[2024-02-24 20:26] LABS: MEAN CORPUSCULAR HEMOGLOBIN 29.8 pg (27.00-32.0)
[2024-02-24 20:41] LABS: ALBUMIN 1.5 gm/dL (3.4-5.0); BILIRUBIN TOTAL 0.25 mg/dL (0.3-1.2); CALCIUM 8.8 mg/dL (8.5-10.1); CREATININE SERUM 0.9 mg/dL (0.70-1.30); GFR 81.61; GLOBULINA 3.3 G/DL (2.4-3.5); POTASSIUM 5.18 mEq/L (3.5-5.1); TOTAL PROTEIN 4.8 gm/dL (6.4-8.2)
[2024-02-24 21:21] LABS: HEMOGLOBIN 7.9 g/dL (13-16.00)
[2024-02-25 02:00] VITALS: BP 155/84
[2024-02-25 09:23] VITALS: BP 120/65
[2024-02-25 18:18] VITALS: BP 133/54
[2024-02-25 21:38] VITALS: BP 144/63
[2024-02-26 01:20] VITALS: BP 150/73; O2SAT 98
[2024-02-26 04:17] LABS: HEMATOCRIT 28.1 % (39.0-48.0); MEAN CELL VOLUME 87.6 fL (80.0-100.00); MEAN CORPUSCULAR HGB CONC 33.6 g/dl (32.0-36.0); PLATELET COUNT 136 K/uL (150-450); RED BLOOD COUNT 3.21 M/uL (4.00-6.00); RED CELL DISTRIBUTION WIDTH 16.3 % (11.5-14.5)
[2024-02-26 04:22] LABS: HEMOGLOBIN 9.5 g/dL (13-16.00); MEAN CORPUSCULAR HEMOGLOBIN 29.5 pg (27.00-32.0)
[2024-02-26 04:32] LABS: CALCIUM 8.7 mg/dL (8.5-10.1); CREATININE SERUM 0.88 mg/dL (0.70-1.30); GFR 83.75; POTASSIUM 5.45 mEq/L (3.5-5.1)
[2024-02-26 10:32] VITALS: BP 147/62
[2024-02-26] MEDS ORDERED: SODIUM POLYSTYRENE SULFONATE 30G/8 TSP PO ONE (17:00)
[2024-02-26 17:15] VITALS: BP 146/66
[2024-02-26 22:07] VITALS: BP 154/57
[2024-02-27 02:00] VITALS: BP 156/82
[2024-02-27 09:34] VITALS: BP 126/58
[2024-02-27 09:41] LABS: CALCIUM 8.6 mg/dL (8.5-10.1); CREATININE SERUM 0.73 mg/dL (0.70-1.30); GFR 103.91; POTASSIUM 5.16 mEq/L (3.5-5.1)
[2024-02-27] MEDS ORDERED: INSULIN NPH HUM/REG INSULIN HM 1,000 UNIT/10 ML UNITS SUBCUTANEO SCH (17:00)
[2024-02-27 17:35] VITALS: BP 154/65
[2024-02-27 21:52] VITALS: BP 104/65
[2024-02-28 02:00] VITALS: BP 134/79
[2024-02-28 09:51] VITALS: BP 157/59
[2024-02-28 17:26] VITALS: BP 148/68
[2024-02-28 21:17] VITALS: BP 119/43
[2024-02-29 02:00] VITALS: BP 138/80
[2024-02-29 09:07] VITALS: BP 170/85; O2SAT 99
[2024-02-29 17:36] VITALS: BP 138/77; O2SAT 98
[2024-03-01 02:30] VITALS: BP 146/68; O2SAT 100
[2024-03-01 09:09] VITALS: BP 175/69; O2SAT 95
[2024-03-01 15:30] VITALS: BP 136/72; O2SAT 96
[2024-03-02 02:00] VITALS: BP 118/66; O2SAT 95
[2024-03-02 07:37] VITALS: BP 126/62; O2SAT 99
[2024-03-02 14:10] LABS: ABG PH 7.459 (7.35-7.45); ABG PO2 75.6 mmHg (80-100); ABG pCO2 48.9 mmHg (35-45); BASE EXCESS 8.6 mmol/l; SaO2 96.1 %; Tco2 35.5 mmol/l
[2024-03-02 14:43] LABS: allen test SATISFACTORY; o2 21 %; puncture site RADIAL LEFT
== END 2024-03-02 19:15 | disposition home or self-care (01) | DRG 208 ==
LOC: ER 19:22 → MEDJ 02-13 00:52 → ICU-2 02-13 00:52 → ICU 02-13 00:52 → MEDJ 02-18 20:07
PROVIDERS: Emergency Medicine; General Practice; Internal Medicine; Internal Medicine Critical Care Medicine; Internal Medicine Nephrology; ADMIT Internal Medicine; ATTEND Internal Medicine
PROC: 5A1945Z Respiratory Ventilation, 24-96 Consecutive Hours (ICD-10-PCS; 2024-02-13)
PROC: 0BH18EZ Insertion of Endotracheal Airway into Trachea, Via Natural or Artificial Opening Endoscopic (ICD-10-PCS; 2024-02-13)
PROC: BW24ZZZ Computerized Tomography (CT Scan) of Chest and Abdomen (ICD-10-PCS; 2024-02-14)
PROC: 02HV33Z Insertion of Infusion Device into Superior Vena Cava, Percutaneous Approach (ICD-10-PCS; 2024-02-14)
PROC: 0DH63UZ Insertion of Feeding Device into Stomach, Percutaneous Approach (ICD-10-PCS; principal; 2024-02-15)
PROC: 3E0G76Z Introduction of Nutritional Substance into Upper GI, Via Natural or Artificial Opening (ICD-10-PCS; 2024-02-15)
PROC: B54DZZZ Ultrasonography of Bilateral Lower Extremity Veins (ICD-10-PCS; 2024-02-19)
PROC: 0HBMXZZ Excision of Right Foot Skin, External Approach (ICD-10-PCS; 2024-02-24)
DX: J44.1 Chronic obstructive pulmonary disease with (acute) exacerbation (principal); A41.9 Sepsis, unspecified organism; J18.9 Pneumonia, unspecified organism; J96.90 Respiratory failure, unspecified, unspecified whether with hypoxia or hypercapnia; J86.9 Pyothorax without fistula; J15.1 Pneumonia due to Pseudomonas; J96.91 Respiratory failure, unspecified with hypoxia; R65.21 Severe sepsis with septic shock; N39.0 Urinary tract infection, site not specified; E87.0 Hyperosmolality and hypernatremia; I82.403 Acute embolism and thrombosis of unspecified deep veins of lower extremity, bilateral; I10 Essential (primary) hypertension; E11.9 Type 2 diabetes mellitus without complications; Z79.4 Long term (current) use of insulin; R13.10 Dysphagia, unspecified; L89.112 Pressure ulcer of right upper back, stage 2; D64.9 Anemia, unspecified; N19 Unspecified kidney failure; I50.9 Heart failure, unspecified; L97.519 Non-pressure chronic ulcer of other part of right foot with unspecified severity

== ENCOUNTER 2024-03-08 15:33 | Inpatient (IN) | payer OTHER ==
[~2024-03-08] VITALS: Ht 175.3 cm; Wt 72.6 kg
[2024-03-08 16:25] LABS: ABG PH 7.447 (7.35-7.45); ABG pCO2 47.2 mmHg (35-45)
[2024-03-08 16:26] LABS: ABG PO2 75.4 mmHg (80-100); BASE EXCESS 6.7 mmol/l; BICARBONATE 31.9 mmol/l (23-25); SaO2 95.8 %; Tco2 33.3 mmol/l; allen test SATISFACTORY; puncture site RADIAL LEFT
[2024-03-08 16:27] LABS: o2 28 %
[2024-03-08 16:36] LABS: HEMATOCRIT 24.4 % (39.0-48.0); MEAN CELL VOLUME 90.1 fL (80.0-100.00); MEAN CORPUSCULAR HEMOGLOBIN 29.5 pg (27.00-32.0); MEAN CORPUSCULAR HGB CONC 32.7 g/dl (32.0-36.0); PLATELET COUNT 310 K/uL (150-450); RED BLOOD COUNT 2.71 M/uL (4.00-6.00); RED CELL DISTRIBUTION WIDTH 16.6 % (11.5-14.5)
[2024-03-08 16:51] LABS: INR 1.06; PARTIAL THROMBOPLASTIN TIME 27.9 SECONDS (22.0-34.0); PROTHROMBIN TIME 11.5 SECONDS (9.0-11.5)
[2024-03-08 16:59] LABS: ALBUMIN 1.8 gm/dL (3.4-5.0); BILIRUBIN TOTAL 0.31 mg/dL (0.3-1.2); BILIRUBIN,CONJUGATED 0.1 mg/dL (0.0-0.2); BILIRUBIN,UNCONJUGATED 0.21 mg/dL (0.0-0.6); CALCIUM 8.7 mg/dL (8.5-10.1); CREATININE SERUM 1.03 mg/dL (0.70-1.30); GFR 69.84; GLOBULINA 3.9 G/DL (2.4-3.5); POTASSIUM 4.96 mEq/L (3.5-5.1); TOTAL PROTEIN 5.7 gm/dL (6.4-8.2)
[2024-03-08 17:33] LABS: URINE APPEARANCE Clear; URINE BILIRRUBIN Negative (NEGATIVE); URINE BLOOD Negative; URINE COLOR Yellow; URINE GLUCOSE Negative (NEGATIVE); URINE KETONE Negative (NEGATIVE); URINE LEUKOCYTE Negative; URINE NITRATE Negative; URINE UROBILINOGEN 0.2 E.U./dl
[2024-03-08 17:37] LABS: URINE BACTERIA 15.1 uL (0.0-1933); URINE RBC 4.1 uL (0.0-20.8); URINE WBC 5.4 uL (0.0-23.2)
[2024-03-08 17:41] LABS: URINE PROTEIN 100 (NEGATIVE)
[2024-03-08 17:51] LABS: ALBUMIN 1.7 gm/dL (3.4-5.0); BILIRUBIN TOTAL 0.26 mg/dL (0.3-1.2); CALCIUM 8.8 mg/dL (8.5-10.1); CREATININE SERUM 1.05 mg/dL (0.70-1.30); GFR 68.31; POTASSIUM 5.05 mEq/L (3.5-5.1); TOTAL PROTEIN 5.7 gm/dL (6.4-8.2)
[2024-03-08 17:53] LABS: C-REACTIVE PROTEIN 8.68 MG/DL (0.00-0.29)
[2024-03-08] MEDS ORDERED: IPRATROPIUM BROMIDE 0.5 MG/2.5 ML AMPUL.NEB IH SCH (20:10)
[2024-03-08] MEDS ORDERED: MEROPENEM 500 MG/VIAL VIAL IV SCH (20:15)
[2024-03-08] MEDS ORDERED: ENALAPRILAT DIHYDRATE 1.25 MG/ML VIAL IV PRN (20:15)
[2024-03-08] MEDS ORDERED: FUROsemide 20 MG/2 ML VIAL IV SCH (20:15)
[2024-03-08] MEDS ORDERED: 0.9 % SODIUM CHLORIDE 1,000 ML IV SCH (20:15)
[2024-03-08] MEDS ORDERED: PANTOPRAZOLE SODIUM 40 MG/VIAL VIAL IV SCH (20:16)
[2024-03-08] MEDS ORDERED: ACETAMINOPHEN 500 MG GEL..CAP PO PRN (20:30)
[2024-03-08 23:00] VITALS: BP 114/52; O2SAT 100
[2024-03-09] VITALS (11 sets, daily range): BP systolic 108–151; BP diastolic 49–83; O2SAT 97–100
[2024-03-09] MEDS ORDERED: IPRATROPIUM BROMIDE 0.5 MG/2.5 ML AMPUL.NEB IH ONE ×2 (01:20→08:20)
[2024-03-09] MEDS ORDERED: LEVOTHYROXINE SODIUM 50 MCG TABLET PO SCH (06:00)
[2024-03-09] MEDS ORDERED: ATORVASTATIN CALCIUM 10 MG TABLET PO SCH (09:00)
[2024-03-09] MEDS ORDERED: TAMSULOSIN HCL 0.4 MG CAP PO SCH (09:00)
[2024-03-09] MEDS ORDERED: ACETAMINOPHEN 650 MG SUPP.RECT RECTAL ONE (15:26)
[2024-03-09] MEDS ORDERED: FUROsemide 20 MG/2 ML VIAL ONE (16:40)
[2024-03-10 01:41] VITALS: BP 131/81; O2SAT 97
[2024-03-10 09:12] VITALS: BP 130/71; O2SAT 98
[2024-03-10 09:45] LABS: HEMATOCRIT 34.7 % (39.0-48.0); HEMOGLOBIN 11.8 g/dL (13-16.00); MEAN CELL VOLUME 88.3 fL (80.0-100.00); MEAN CORPUSCULAR HEMOGLOBIN 29.9 pg (27.00-32.0); MEAN CORPUSCULAR HGB CONC 33.9 g/dl (32.0-36.0); PLATELET COUNT 302 K/uL (150-450); RED BLOOD COUNT 3.94 M/uL (4.00-6.00); RED CELL DISTRIBUTION WIDTH 15.6 % (11.5-14.5)
[2024-03-10] MEDS ORDERED: VANCOMYCIN HCL 1,000 MG in 0.9 % SODIUM CHLORIDE 250 ML IV SCH (09:57)
[2024-03-10 12:34] LABS: CALCIUM 9.1 mg/dL (8.5-10.1); CREATININE SERUM 1.15 mg/dL (0.70-1.30); GFR 61.5; POTASSIUM 4.08 mEq/L (3.5-5.1)
[2024-03-10 18:51] VITALS: BP 132/72; O2SAT 100
[2024-03-10 22:41] VITALS: BP 144/74; O2SAT 96
[2024-03-11 02:11] VITALS: BP 156/83; O2SAT 97
[2024-03-11] MEDS ORDERED: VANCOMYCIN HCL 1,000 MG VIAL ONE (08:17)
[2024-03-11 08:37] VITALS: BP 139/77; O2SAT 96
[2024-03-11 17:27] VITALS: BP 160/85; O2SAT 100
[2024-03-11 22:26] VITALS: BP 160/80; O2SAT 100
[2024-03-12 01:40] VITALS: BP 168/87; O2SAT 99
[2024-03-12] MEDS ORDERED: DEXTROSE 50 % IN WATER 0.5 G/ML DISP.SYRIN IV PRN (03:45)
[2024-03-12] MEDS ORDERED: INSULIN LISPRO 1,000 UNIT/10 ML UNITS SUBCUTANEO PRN (03:45)
[2024-03-12] MEDS ORDERED: AMLODIPINE BESYLATE 5 MG TABLET PO SCH (09:00)
[2024-03-12 09:32] VITALS: BP 185/84; O2SAT 98
[2024-03-12 17:28] VITALS: BP 146/64; O2SAT 100
[2024-03-12] MEDS ORDERED: VANCOMYCIN HCL 750 MG in 0.9 % SODIUM CHLORIDE 250 ML IV SCH (21:00)
[2024-03-12] MEDS ORDERED: VANCOMYCIN HCL 5 MG/ML REDILUIDO IV SCH (21:00)
[2024-03-12 21:55] VITALS: BP 151/70; O2SAT 98
[2024-03-13 00:55] VITALS: BP 158/72; O2SAT 98
[2024-03-13 07:24] LABS: ALBUMIN 1.7 gm/dL (3.4-5.0); BILIRUBIN TOTAL 0.38 mg/dL (0.3-1.2); CALCIUM 8.7 mg/dL (8.5-10.1); CREATININE SERUM 0.72 mg/dL (0.70-1.30); GFR 105.58; GLOBULINA 3.6 G/DL (2.4-3.5); POTASSIUM 3.59 mEq/L (3.5-5.1); TOTAL PROTEIN 5.3 gm/dL (6.4-8.2)
[2024-03-13 07:48] LABS: HEMATOCRIT 31.4 % (39.0-48.0); HEMOGLOBIN 10.6 g/dL (13-16.00); MEAN CORPUSCULAR HGB CONC 33.6 g/dl (32.0-36.0); PLATELET COUNT 232 K/uL (150-450); RED BLOOD COUNT 3.53 M/uL (4.00-6.00); RED CELL DISTRIBUTION WIDTH 15.8 % (11.5-14.5)
[2024-03-13 09:11] VITALS: BP 140/75; O2SAT 96
[2024-03-13 17:09] VITALS: BP 138/65; O2SAT 98
[2024-03-13 21:39] VITALS: BP 148/68; O2SAT 100
[2024-03-14 00:50] VITALS: BP 136/69; O2SAT 99
[2024-03-14 06:56] LABS: ALBUMIN 1.6 gm/dL (3.4-5.0); CALCIUM 8.5 mg/dL (8.5-10.1); CREATININE SERUM 0.76 mg/dL (0.70-1.30); GFR 99.19; POTASSIUM 3.67 mEq/L (3.5-5.1)
[2024-03-14 07:13] LABS: PHOSPHOROUS 0.9 mg/dL (2.5-4.9)
[2024-03-14 08:51] VITALS: BP 160/85; O2SAT 98
[2024-03-14] MEDS ORDERED: NAPH,MB-DB/K PH,MBDB 1 PKT PACKET PO SCH (09:00)
[2024-03-14] MEDS ORDERED: DEXTROSE 5 % IN WATER 1,000 ML IV SCH (10:45)
[2024-03-14 17:30] VITALS: BP 154/61
[2024-03-14 22:07] VITALS: BP 180/84
[2024-03-15 01:35] VITALS: BP 174/73; O2SAT 99
[2024-03-15 07:10] VITALS: BP 152/81; O2SAT 99
[2024-03-15 07:13] LABS: CALCIUM 8.6 mg/dL (8.5-10.1); CREATININE SERUM 0.65 mg/dL (0.70-1.30); GFR 118.8; POTASSIUM 4.32 mEq/L (3.5-5.1)
[2024-03-15 17:10] VITALS: BP 138/82
[2024-03-15 21:52] VITALS: BP 140/70
[2024-03-16 02:19] VITALS: BP 176/72
[2024-03-16 04:52] LABS: CALCIUM 8.3 mg/dL (8.5-10.1); CREATININE SERUM 0.64 mg/dL (0.70-1.30); GFR 120.95
[2024-03-16 04:55] LABS: PHOSPHOROUS 1.1 mg/dL (2.5-4.9)
[2024-03-16 08:15] VITALS: BP 140/68; O2SAT 98
[2024-03-16] MEDS ORDERED: POTASSIUM PHOS,M-BASIC-D-BASIC 15 MM in 0.9 % SODIUM CHLORIDE 250 ML IV NR (13:15)
[2024-03-16 18:02] VITALS: BP 145/63
[2024-03-16 21:50] VITALS: BP 121/58
[2024-03-16] MEDS ORDERED: SODIUM CHLORIDE 0.45 % 1,000 ML IV SCH (22:00)
[2024-03-17 01:35] VITALS: BP 97/69; O2SAT 99
[2024-03-17 07:09] LABS: CALCIUM 8.4 mg/dL (8.5-10.1); CREATININE SERUM 0.68 mg/dL (0.70-1.30); GFR 112.78; MAGNESIUM 1.8 mg/dL (1.8-2.4); PHOSPHOROUS 3.3 mg/dL (2.5-4.9); POTASSIUM 4.43 mEq/L (3.5-5.1)
[2024-03-17 09:03] VITALS: BP 143/58; O2SAT 100
[2024-03-17 16:34] VITALS: BP 154/73
[2024-03-18 01:10] VITALS: BP 136/84; O2SAT 97
[2024-03-18 09:08] VITALS: BP 140/77; O2SAT 97
[2024-03-18 15:11] LABS: HEMATOCRIT 31.6 % (39.0-48.0); HEMOGLOBIN 10.6 g/dL (13-16.00); MEAN CELL VOLUME 87.9 fL (80.0-100.00); MEAN CORPUSCULAR HEMOGLOBIN 29.5 pg (27.00-32.0); MEAN CORPUSCULAR HGB CONC 33.5 g/dl (32.0-36.0); PLATELET COUNT 193 K/uL (150-450); RED BLOOD COUNT 3.59 M/uL (4.00-6.00); RED CELL DISTRIBUTION WIDTH 15.5 % (11.5-14.5)
[2024-03-18 18:45] VITALS: BP 146/61
[2024-03-18] MEDS ORDERED: VANCOMYCIN HCL 500 MG VIAL IV SCH (21:00)
[2024-03-18] MEDS ORDERED: VANCOMYCIN HCL 5 MG/ML REDILUIDO IV SCH (21:00)
[2024-03-18 21:26] VITALS: BP 140/77
[2024-03-19 02:10] VITALS: BP 118/52
[2024-03-19 08:36] VITALS: BP 140/84; O2SAT 99
[2024-03-19] MEDS ORDERED: VANCOMYCIN HCL 5 MG/ML REDILUIDO IV SCH (09:00)
[2024-03-19 17:09] VITALS: BP 156/73
[2024-03-19 21:04] VITALS: BP 153/84
[2024-03-20 02:19] VITALS: BP 159/65
[2024-03-20 08:32] LABS: ALBUMIN 1.6 gm/dL (3.4-5.0); BILIRUBIN TOTAL 0.33 mg/dL (0.3-1.2); CALCIUM 8.5 mg/dL (8.5-10.1); CREATININE SERUM 0.65 mg/dL (0.70-1.30); GFR 118.8; GLOBULINA 3.7 G/DL (2.4-3.5); POTASSIUM 5.75 mEq/L (3.5-5.1); TOTAL PROTEIN 5.3 gm/dL (6.4-8.2)
[2024-03-20 08:35] VITALS: BP 156/76
[2024-03-20 17:33] VITALS: BP 135/54
[2024-03-20 21:46] VITALS: BP 133/72
[2024-03-21 02:44] VITALS: BP 141/51; O2SAT 95
[2024-03-21 08:04] VITALS: BP 158/61
[2024-03-21 16:53] VITALS: BP 98/51
[2024-03-21 21:44] VITALS: BP 131/73
[2024-03-22 00:37] VITALS: BP 95/56; O2SAT 98
[2024-03-22 06:36] LABS: CALCIUM 8.8 mg/dL (8.5-10.1); CREATININE SERUM 0.77 mg/dL (0.70-1.30); GFR 97.71; POTASSIUM 5.8 mEq/L (3.5-5.1)
[2024-03-22 08:00] VITALS: BP 146/61
[2024-03-22] MEDS ORDERED: SODIUM POLYSTYRENE SULFONATE 30G/8 TSP PO SCH (12:00)
[2024-03-22 15:15] VITALS: BP 152/70; O2SAT 96
[2024-03-23 00:49] VITALS: BP 138/68; O2SAT 97
[2024-03-23 04:00] VITALS: BP 149/74
[2024-03-23 06:57] LABS: CALCIUM 8.6 mg/dL (8.5-10.1); CREATININE SERUM 0.78 mg/dL (0.70-1.30); GFR 96.26; POTASSIUM 4.71 mEq/L (3.5-5.1)
[2024-03-23 08:16] VITALS: BP 146/69; O2SAT 96
[2024-03-23 16:54] VITALS: BP 137/69; O2SAT 95
[2024-03-23] MEDS ORDERED: INSULIN NPH HUMAN ISOPHANE 1,000 UNITS/10 ML UNITS SUBCUTANEO SCH (17:00)
[2024-03-24 01:12] VITALS: BP 147/69; O2SAT 95
[2024-03-24 08:39] VITALS: BP 150/69; O2SAT 96
[2024-03-24 17:10] VITALS: BP 149/69; O2SAT 95
== END 2024-03-24 17:24 | disposition home or self-care (01) | DRG 463 ==
LOC: ER 15:33 → ICU-2 22:11 → SEC-K 03-09 15:06 → MEDI 03-09 16:00
PROVIDERS: Emergency Medicine; General Practice; Internal Medicine; Internal Medicine Infectious Disease; ADMIT Internal Medicine; ATTEND Internal Medicine
PROC: BW21ZZZ Computerized Tomography (CT Scan) of Abdomen and Pelvis (ICD-10-PCS; 2024-03-08)
PROC: 30233N1 Transfusion of Nonautologous Red Blood Cells into Peripheral Vein, Percutaneous Approach (ICD-10-PCS; 2024-03-09)
PROC: 0JBQ0ZZ Excision of Right Foot Subcutaneous Tissue and Fascia, Open Approach (ICD-10-PCS; principal; 2024-03-23)
DX: M86.171 Other acute osteomyelitis, right ankle and foot (principal); A41.1 Sepsis due to other specified staphylococcus; E87.0 Hyperosmolality and hypernatremia; J44.1 Chronic obstructive pulmonary disease with (acute) exacerbation; N17.9 Acute kidney failure, unspecified; E11.621 Type 2 diabetes mellitus with foot ulcer; E11.69 Type 2 diabetes mellitus with other specified complication; E11.65 Type 2 diabetes mellitus with hyperglycemia; L89.102 Pressure ulcer of unspecified part of back, stage 2; L97.519 Non-pressure chronic ulcer of other part of right foot with unspecified severity; Z79.4 Long term (current) use of insulin; D64.9 Anemia, unspecified; E03.9 Hypothyroidism, unspecified; R13.19 Other dysphagia; I25.10 Atherosclerotic heart disease of native coronary artery without angina pectoris; I11.0 Hypertensive heart disease with heart failure; I50.9 Heart failure, unspecified; Z74.01 Bed confinement status

== ENCOUNTER 2024-08-31 22:35 | Inpatient (IN) | payer OTHER ==
[~2024-08-31] VITALS: Ht 175.3 cm; Wt 74.8 kg
--- NOTE | 2024-08-31 22:42 | NUR ---
PACIENTE MASCULINO ALERTA Y DESORIENTADO X3, LLEGA A WALDEMAR DE EMERGENCIA EN AMBULANCIA. REFIERE DIFICULTAD AL RESPIRAR Y LA PRESION ARETRIAL BAJA.
[2024-08-31] MEDS ORDERED: LEVALBUTEROL HCL 1.25 MG/3 ML SOLUTION IH SCH (22:52)
[2024-08-31] MEDS ORDERED: 0.9 % SODIUM CHLORIDE 1,000 ML IV SCH (23:00)
[2024-08-31] MEDS ORDERED: CEFTRIAXONE SODIUM 2,000 MG VIAL IV ONE (23:00)
[2024-08-31 23:25] LABS: HEMATOCRIT 26.7 % (39.0-48.0); MEAN CELL VOLUME 89.5 fL (80.0-100.00); PLATELET COUNT 321 K/uL (150-450); RED BLOOD COUNT 2.98 M/uL (4.00-6.00); RED CELL DISTRIBUTION WIDTH 17.5 % (11.5-14.5)
[2024-08-31 23:27] LABS: HEMOGLOBIN 8.6 g/dL (13-16.00); MEAN CORPUSCULAR HEMOGLOBIN 28.8 pg (27.00-32.0)
[2024-08-31 23:40] LABS: ALBUMIN 1.8 gm/dL (3.4-5.0); BILIRUBIN TOTAL 0.29 mg/dL (0.3-1.2); CALCIUM 10.1 mg/dL (8.5-10.1); CREATININE SERUM 1.81 mg/dL (0.70-1.30); GFR 36.35; GLOBULINA 6.1 G/DL (2.4-3.5); POTASSIUM 4.4 mEq/L (3.5-5.1); TOTAL PROTEIN 7.9 gm/dL (6.4-8.2)
[2024-09-01] MEDS ORDERED: PIPERACILLIN/TAZOBACTAM SODIUM 2.25 GM in DEXTROSE 5 % IN WATER 50 ML IV SCH (00:10)
[2024-09-01] MEDS ORDERED: PANTOPRAZOLE SODIUM 40 MG/VIAL VIAL IV ONE (00:15)
[2024-09-01] MEDS ORDERED: FUROsemide 20 MG/2 ML VIAL IV SCH (00:15)
[2024-09-01] MEDS ORDERED: ONDANSETRON HCL 4 MG in 0.9 % SODIUM CHLORIDE 50 ML IV PRN (00:15)
[2024-09-01] MEDS ORDERED: PANTOPRAZOLE SODIUM 80 MG in 0.9 % SODIUM CHLORIDE 100 ML IV SCH (00:15)
[2024-09-01 00:29] LABS: PH,URINE 6.5 (5.0-8.0); URINE APPEARANCE Clear; URINE BILIRRUBIN Negative (NEGATIVE); URINE BLOOD Negative; URINE COLOR Yellow; URINE GLUCOSE Negative (NEGATIVE); URINE KETONE Negative (NEGATIVE); URINE LEUKOCYTE Trace; URINE NITRATE Negative
[2024-09-01 00:34] LABS: URINE BACTERIA 37.9 uL (0.0-1933); URINE CAST 4.27 uL (0.0-1.40); URINE RBC 4.8 uL (0.0-20.8); URINE WBC 18.3 uL (0.0-23.2)
[2024-09-01] MEDS ORDERED: IPRATROPIUM BROMIDE 0.5 MG/2.5 ML AMPUL.NEB IH SCH (01:00)
[2024-09-01 01:06] LABS: URINE PROTEIN 100 (NEGATIVE)
[2024-09-01 01:36] LABS: ABG PH 7.483 (7.35-7.45); ABG PO2 240.2 mmHg (80-100); BASE EXCESS 12.8 mmol/l; BICARBONATE 38.6 mmol/l (23-25); SaO2 99.9 %; Tco2 40.2 mmol/l; allen test SATISFACTORY; o2 100 %; puncture site RADIAL LEFT
[2024-09-01 01:37] LABS: ABG pCO2 52.6 mmHg (35-45)
[2024-09-01 03:55] VITALS: BP 90/45
[2024-09-01 04:02] LABS: INR 1.05; PROTHROMBIN TIME 11.4 SECONDS (9.0-11.5)
[2024-09-01 04:06] LABS: PARTIAL THROMBOPLASTIN TIME < 20.0 SECONDS (22.0-34.0)
[2024-09-01] MEDS ORDERED: LEVOTHYROXINE SODIUM 50 MCG TABLET PO SCH (06:00)
[2024-09-01] MEDS ORDERED: NOREPINEPHRINE BITARTRATE 8 MG in DEXTROSE 5 % IN WATER 250 ML IV SCH (06:45)
[2024-09-01 07:00] VITALS: BP 129/40; O2SAT 99
[2024-09-01] MEDS ORDERED: TAMSULOSIN HCL 0.4 MG CAP PO SCH (09:00)
[2024-09-01] MEDS ORDERED: LOSARTAN POTASSIUM 50 MG TABLET PO SCH (09:00)
[2024-09-01 16:24] VITALS: O2SAT 94
[2024-09-01 17:11] VITALS: BP 158/68
[2024-09-01] MEDS ORDERED: LINEZOLID IN DEXTROSE 5% 300 ML IV SCH (21:00)
[2024-09-01] MEDS ORDERED: MEROPENEM 500 MG/VIAL VIAL IV SCH (21:00)
[2024-09-01 21:04] VITALS: O2SAT 98
[2024-09-02] VITALS (10 sets, daily range): BP systolic 134–150; BP diastolic 61–74; O2SAT 90–98
[2024-09-02 05:31] LABS: HEMATOCRIT 32.7 % (39.0-48.0); HEMOGLOBIN 10.9 g/dL (13-16.00); MEAN CELL VOLUME 87.4 fL (80.0-100.00); MEAN CORPUSCULAR HEMOGLOBIN 29.1 pg (27.00-32.0); MEAN CORPUSCULAR HGB CONC 33.3 g/dl (32.0-36.0); PLATELET COUNT 293 K/uL (150-450); RED BLOOD COUNT 3.74 M/uL (4.00-6.00); RED CELL DISTRIBUTION WIDTH 18.1 % (11.5-14.5)
[2024-09-02 05:56] LABS: ALBUMIN 1.7 gm/dL (3.4-5.0); BILIRUBIN TOTAL 0.59 mg/dL (0.3-1.2); CALCIUM 8.8 mg/dL (8.5-10.1); CREATININE SERUM 1.61 mg/dL (0.70-1.30); GFR 41.6; GLOBULINA 5.1 G/DL (2.4-3.5); MAGNESIUM 2.2 mg/dL (1.8-2.4); PHOSPHOROUS 3.2 mg/dL (2.5-4.9); POTASSIUM 3.84 mEq/L (3.5-5.1); TOTAL PROTEIN 6.8 gm/dL (6.4-8.2); TSH 1.92 uIU/mL (0.358-3.74)
[2024-09-02 06:05] LABS: C-REACTIVE PROTEIN 23.8 MG/DL (0.00-0.29)
[2024-09-02 08:56] LABS: MYCOPLASMA PNEUMONIAE IGM NON REACTIVE (NO REACTIVE)
[2024-09-02] MEDS ORDERED: AZITHROMYCIN 500 MG VIAL IV SCH (09:00)
[2024-09-02] MEDS ORDERED: OSELTAMIVIR PHOSPHATE 75 MG CAPSULE PO NR (09:30)
[2024-09-02] MEDS ORDERED: IPRATROPIUM BROMIDE 0.5 MG/2.5 ML AMPUL.NEB IH SCH (12:00)
[2024-09-02] MEDS ORDERED: DEXTROSE 5 % IN WATER 1,000 ML IV SCH (21:00)
[2024-09-02] MEDS ORDERED: OSELTAMIVIR PHOSPHATE 30MG CAP PO SCH (21:00)
[2024-09-03] VITALS (15 sets, daily range): BP systolic 86–137; BP diastolic 43–65; O2SAT 94–99
[2024-09-03 07:32] LABS: HEMATOCRIT 32.3 % (39.0-48.0); HEMOGLOBIN 10.4 g/dL (13-16.00); MEAN CELL VOLUME 87.7 fL (80.0-100.00); MEAN CORPUSCULAR HEMOGLOBIN 28.4 pg (27.00-32.0); MEAN CORPUSCULAR HGB CONC 32.4 g/dl (32.0-36.0); PLATELET COUNT 263 K/uL (150-450); RED BLOOD COUNT 3.68 M/uL (4.00-6.00); RED CELL DISTRIBUTION WIDTH 19.2 % (11.5-14.5)
[2024-09-03 08:46] LABS: CALCIUM 8.5 mg/dL (8.5-10.1); CREATININE SERUM 1.71 mg/dL (0.70-1.30); GFR 38.81; POTASSIUM 3.47 mEq/L (3.5-5.1)
[2024-09-03] MEDS ORDERED: NOREPINEPHRINE BITARTRATE 8 MG in DEXTROSE 5 % IN WATER 250 ML IV SCH (09:45)
[2024-09-04] VITALS (8 sets, daily range): BP systolic 107–131; BP diastolic 56–65; O2SAT 95–99
[2024-09-04 11:29] LABS: CREATININE SERUM 2.46 mg/dL (0.70-1.30); GFR 25.51; POTASSIUM 3.57 mEq/L (3.5-5.1)
[2024-09-04] MEDS ORDERED: INSULIN LISPRO 1,000 UNIT/10 ML UNITS SUBCUTANEO PRN (11:30)
[2024-09-04] MEDS ORDERED: DEXTROSE 50 % IN WATER 0.5 G/ML DISP.SYRIN IV PRN (11:30)
[2024-09-04] MEDS ORDERED: DEXTROSE 5 % AND 0.9 % NACL 1,000 ML IV SCH (17:30)
[2024-09-05] VITALS (18 sets, daily range): BP systolic 61–147; BP diastolic 45–82; O2SAT 90–98
[2024-09-05] MEDS ORDERED: PANTOPRAZOLE SODIUM 80 MG in 0.9 % SODIUM CHLORIDE 100 ML IV SCH (07:00)
[2024-09-05 07:04] LABS: CALCIUM 7.6 mg/dL (8.5-10.1); CREATININE SERUM 2.54 mg/dL (0.70-1.30); GFR 24.58; POTASSIUM 3.61 mEq/L (3.5-5.1)
[2024-09-05] MEDS ORDERED: MEROPENEM 1,000 MG VIAL IV SCH (17:00)
[2024-09-05] MEDS ORDERED: ACETAMINOPHEN 500 MG GEL..CAP PO PRN (17:15)
[2024-09-05] MEDS ORDERED: 0.9 % SODIUM CHLORIDE 1,000 ML IV SCH (17:30)
[2024-09-05 17:43] LABS: ALBUMIN 1.2 gm/dL (3.4-5.0); CALCIUM 7.6 mg/dL (8.5-10.1); CREATININE SERUM 2.49 mg/dL (0.70-1.30); GFR 25.15; PHOSPHOROUS 3.6 mg/dL (2.5-4.9); POTASSIUM 3.35 mEq/L (3.5-5.1)
[2024-09-05] MEDS ORDERED: INSULIN GLARGINE,HUM.REC.ANLOG 1,000 UNITS/10 ML UNITS SUBCUTANEO SCH (21:00)
[2024-09-06] VITALS (23 sets, daily range): BP systolic 81–158; BP diastolic 44–94; O2SAT 95–100
[2024-09-06 07:40] LABS: HEMATOCRIT 28.7 % (39.0-48.0); HEMOGLOBIN 9.6 g/dL (13-16.00); MEAN CELL VOLUME 84.5 fL (80.0-100.00); MEAN CORPUSCULAR HEMOGLOBIN 28.3 pg (27.00-32.0); MEAN CORPUSCULAR HGB CONC 33.5 g/dl (32.0-36.0); PLATELET COUNT 169 K/uL (150-450); RED BLOOD COUNT 3.39 M/uL (4.00-6.00); RED CELL DISTRIBUTION WIDTH 17.5 % (11.5-14.5)
[2024-09-06 08:11] LABS: ALBUMIN 1.1 gm/dL (3.4-5.0); BILIRUBIN TOTAL 0.36 mg/dL (0.3-1.2); CALCIUM 7.1 mg/dL (8.5-10.1); CREATININE SERUM 2.57 mg/dL (0.70-1.30); GFR 24.25; GLOBULINA 3.8 G/DL (2.4-3.5); MAGNESIUM 1.6 mg/dL (1.8-2.4); PHOSPHOROUS 3.7 mg/dL (2.5-4.9); POTASSIUM 3.38 mEq/L (3.5-5.1); TOTAL PROTEIN 4.9 gm/dL (6.4-8.2)
[2024-09-06 09:36] LABS: C-REACTIVE PROTEIN 15.1 MG/DL (0.00-0.29)
[2024-09-06] MEDS ORDERED: POTASSIUM CHLORIDE IN WATER 100 ML IV NR (10:00)
[2024-09-07] VITALS (14 sets, daily range): BP systolic 91–123; BP diastolic 44–71; O2SAT 97–100
[2024-09-07] MEDS ORDERED: PANTOPRAZOLE SODIUM 40 MG/VIAL VIAL IV SCH (09:00)
[2024-09-07 09:36] LABS: CALCIUM 7.3 mg/dL (8.5-10.1); CREATININE SERUM 2.46 mg/dL (0.70-1.30); GFR 25.51; MAGNESIUM 1.7 mg/dL (1.8-2.4); POTASSIUM 4.13 mEq/L (3.5-5.1)
[2024-09-08] VITALS (9 sets, daily range): BP systolic 109–124; BP diastolic 49–90; O2SAT 94–100
[2024-09-08] MEDS ORDERED: CEFEPIME HCL 2,000 MG VIAL IV NR (14:30)
[2024-09-09] VITALS (9 sets, daily range): BP systolic 101–147; BP diastolic 61–77; O2SAT 97–99
[2024-09-09 05:23] LABS: HEMATOCRIT 28.2 % (39.0-48.0); HEMOGLOBIN 9.2 g/dL (13-16.00); MEAN CELL VOLUME 86.2 fL (80.0-100.00); MEAN CORPUSCULAR HEMOGLOBIN 28.2 pg (27.00-32.0); MEAN CORPUSCULAR HGB CONC 32.7 g/dl (32.0-36.0); RED BLOOD COUNT 3.28 M/uL (4.00-6.00); RED CELL DISTRIBUTION WIDTH 17.7 % (11.5-14.5)
[2024-09-09 05:33] LABS: PLATELET COUNT 123 K/uL (150-450)
[2024-09-09 06:25] LABS: CALCIUM 7.1 mg/dL (8.5-10.1); CREATININE SERUM 2.24 mg/dL (0.70-1.30); GFR 28.42; POTASSIUM 4.41 mEq/L (3.5-5.1)
[2024-09-09 06:26] LABS: MAGNESIUM 1.7 mg/dL (1.8-2.4); PHOSPHOROUS 3.5 mg/dL (2.5-4.9)
[2024-09-09 06:53] LABS: URINE APPEARANCE Cloudy; URINE BILIRRUBIN Negative (NEGATIVE); URINE BLOOD Moderate; URINE COLOR Yellow; URINE GLUCOSE Negative (NEGATIVE); URINE KETONE Negative (NEGATIVE); URINE LEUKOCYTE Small; URINE NITRATE Negative; URINE PROTEIN 30 (NEGATIVE); URINE UROBILINOGEN 0.2 E.U./dl
[2024-09-09 06:56] LABS: URINE BACTERIA 577.7 uL (0.0-1933); URINE CAST 12.96 uL (0.0-1.40); URINE EPITHELIAL CELLS 39.8 uL (0.0-38.8); URINE RBC 34.4 uL (0.0-20.8); URINE WBC 193.6 uL (0.0-23.2)
[2024-09-09 07:20] LABS: URINE CRYSTALS MODERATE /HPF
[2024-09-09 10:07] LABS: PROCALCITONIN 0.59 ng/ml (0.020-0.080)
[2024-09-09 10:49] LABS: CORTISOL 16.54 ug/dl
[2024-09-09] MEDS ORDERED: CEFEPIME HCL 2,000 MG VIAL IV SCH (12:00)
[2024-09-09] MEDS ORDERED: MAGNESIUM SULFATE IN WATER 50 ML IV NR (13:00)
[2024-09-10] VITALS (9 sets, daily range): BP systolic 113–164; BP diastolic 64–76; O2SAT 90–100
[2024-09-11] VITALS (7 sets, daily range): BP systolic 115–144; BP diastolic 63–69; O2SAT 99–100
[2024-09-11 09:18] LABS: ob POSITIVE (NEGATIVE)
[2024-09-12] VITALS (9 sets, daily range): BP systolic 128–133; BP diastolic 60–83; O2SAT 97–100
[2024-09-12 07:10] LABS: HEMATOCRIT 26.9 % (39.0-48.0); MEAN CELL VOLUME 86.7 fL (80.0-100.00); MEAN CORPUSCULAR HGB CONC 32.6 g/dl (32.0-36.0); RED CELL DISTRIBUTION WIDTH 17.5 % (11.5-14.5)
[2024-09-12 07:15] LABS: HEMOGLOBIN 8.8 g/dL (13-16.00); MEAN CORPUSCULAR HEMOGLOBIN 28.3 pg (27.00-32.0); PLATELET COUNT 87 K/uL (150-450)
[2024-09-12 08:16] LABS: BILIRUBIN TOTAL 0.31 mg/dL (0.3-1.2); CALCIUM 7.7 mg/dL (8.5-10.1); CREATININE SERUM 1.94 mg/dL (0.70-1.30); GFR 33.55; GLOBULINA 3.6 G/DL (2.4-3.5); POTASSIUM 4.86 mEq/L (3.5-5.1); TOTAL PROTEIN 4.5 gm/dL (6.4-8.2)
[2024-09-12 08:53] LABS: ALBUMIN 0.9 gm/dL (3.4-5.0)
[2024-09-12 22:33] LABS: ABG PH 7.397 (7.35-7.45); ABG PO2 60.9 mmHg (80-100); ABG pCO2 36.3 mmHg (35-45); BASE EXCESS -2.4 mmol/l; BICARBONATE 21.8 mmol/l (23-25); SaO2 90.7 %; Tco2 22.9 mmol/l
[2024-09-13] VITALS (9 sets, daily range): BP systolic 86–121; BP diastolic 49–64; O2SAT 94–100
[2024-09-13 07:37] LABS: HEMATOCRIT 25.2 % (39.0-48.0); MEAN CELL VOLUME 86.5 fL (80.0-100.00); MEAN CORPUSCULAR HGB CONC 32.8 g/dl (32.0-36.0); RED BLOOD COUNT 2.91 M/uL (4.00-6.00); RED CELL DISTRIBUTION WIDTH 17.9 % (11.5-14.5)
[2024-09-13 07:49] LABS: URINE BACTERIA 510.3 uL (0.0-1933); URINE CAST 1.47 uL (0.0-1.40); URINE EPITHELIAL CELLS 13.1 uL (0.0-38.8); URINE RBC 734.4 uL (0.0-20.8); URINE WBC 56.2 uL (0.0-23.2)
[2024-09-13 07:51] LABS: URINE BILIRRUBIN SMALL (NEGATIVE); URINE BLOOD LARGE; URINE GLUCOSE NEGATIVE (NEGATIVE); URINE KETONE NEGATIVE (NEGATIVE); URINE LEUKOCYTE NEGATIVE; URINE NITRATE NEGATIVE; URINE UROBILINOGEN 0.2 E.U./dl
[2024-09-13 07:52] LABS: URINE APPEARANCE CLEAR; URINE COLOR YELLOW; URINE PROTEIN 100 (NEGATIVE)
[2024-09-13 08:17] LABS: BILIRUBIN TOTAL 0.27 mg/dL (0.3-1.2); CALCIUM 8.2 mg/dL (8.5-10.1); CREATININE SERUM 1.76 mg/dL (0.70-1.30); GFR 37.54; GLOBULINA 3.4 G/DL (2.4-3.5); POTASSIUM 4.81 mEq/L (3.5-5.1); TOTAL PROTEIN 4.3 gm/dL (6.4-8.2)
[2024-09-13 08:21] LABS: PROCALCITONIN 0.525 ng/ml (0.020-0.080)
[2024-09-13 08:22] LABS: HEMOGLOBIN 8.2 g/dL (13-16.00); MEAN CORPUSCULAR HEMOGLOBIN 28.1 pg (27.00-32.0)
[2024-09-13 08:23] LABS: ALBUMIN 0.9 gm/dL (3.4-5.0); MANUAL PLATELET COUNT 156; PLATELET COUNT 82 K/uL (150-450)
[2024-09-13] MEDS ORDERED: DEXTROSE 5 % IN WATER 1,000 ML IV SCH (12:15)
[2024-09-13] MEDS ORDERED: METHYLPREDNISOLONE SOD SUCC 125 MG VIAL IV NR (13:45)
[2024-09-13] MEDS ORDERED: ANIDULAFUNGIN 100 MG VIAL IV NR (16:00)
[2024-09-13 16:12] LABS: allen test SATISFACTORY; o2 21 %; puncture site RADIAL LEFT
[2024-09-13 16:25] LABS: CORTISOL 20.56 ug/dl
[2024-09-13] MEDS ORDERED: MEROPENEM 500 MG/VIAL VIAL IV SCH (17:00)
[2024-09-13] MEDS ORDERED: METHYLPREDNISOLONE SOD SUCC 40 MG VIAL IV SCH ×2 (17:00→21:00)
[2024-09-14] VITALS (9 sets, daily range): BP systolic 124–141; BP diastolic 63–65; O2SAT 92–100
[2024-09-14] MEDS ORDERED: ANIDULAFUNGIN 100 MG VIAL IV SCH (17:00)
[2024-09-14 19:57] LABS: HEMATOCRIT 29.3 % (39.0-48.0); HEMOGLOBIN 9.6 g/dL (13-16.00); MEAN CELL VOLUME 86.6 fL (80.0-100.00); MEAN CORPUSCULAR HEMOGLOBIN 28.4 pg (27.00-32.0); MEAN CORPUSCULAR HGB CONC 32.7 g/dl (32.0-36.0); RED BLOOD COUNT 3.39 M/uL (4.00-6.00); RED CELL DISTRIBUTION WIDTH 17.6 % (11.5-14.5)
[2024-09-14 19:59] LABS: PLATELET COUNT 71 K/uL (150-450)
[2024-09-14 20:26] LABS: CKMB 7.6 NG/ML (0.5-3.6)
[2024-09-14] MEDS ORDERED: METHYLPREDNISOLONE SOD SUCC 40 MG VIAL IV SCH (21:00)
[2024-09-15 00:43] VITALS: O2SAT 100
[2024-09-15 04:56] VITALS: BP 95/52
[2024-09-15 05:13] VITALS: O2SAT 91
[2024-09-15 07:02] VITALS: O2SAT 0
== END 2024-09-15 11:14 | disposition expired | DRG 871 ==
LOC: ER 22:35 → ICU-2 09-01 00:18 → MEDJ 09-01 11:53
PROVIDERS: General Practice; Internal Medicine; Internal Medicine Infectious Disease; Student in an Organized Health Care Education/Training Program; ADMIT Internal Medicine; ATTEND Internal Medicine
PROC: BW21ZZZ Computerized Tomography (CT Scan) of Abdomen and Pelvis (ICD-10-PCS; principal; 2024-09-01)
PROC: BB24ZZZ Computerized Tomography (CT Scan) of Bilateral Lungs (ICD-10-PCS; 2024-09-01)
PROC: B246ZZZ Ultrasonography of Right and Left Heart (ICD-10-PCS; 2024-09-01)
PROC: 3E0F7GC Introduction of Other Therapeutic Substance into Respiratory Tract, Via Natural or Artificial Opening (ICD-10-PCS; 2024-09-01)
PROC: 4A12X4Z Monitoring of Cardiac Electrical Activity, External Approach (ICD-10-PCS; 2024-09-01)
PROC: 30233L1 Transfusion of Nonautologous Fresh Plasma into Peripheral Vein, Percutaneous Approach (ICD-10-PCS; 2024-09-01)
PROC: 30233N1 Transfusion of Nonautologous Red Blood Cells into Peripheral Vein, Percutaneous Approach (ICD-10-PCS; 2024-09-01)
PROC: 8E0ZXY6 Isolation (ICD-10-PCS; 2024-09-01)
PROC: 02HV33Z Insertion of Infusion Device into Superior Vena Cava, Percutaneous Approach (ICD-10-PCS; 2024-09-05)
PROC: 0JBR3ZZ Excision of Left Foot Subcutaneous Tissue and Fascia, Percutaneous Approach (ICD-10-PCS; 2024-09-05)
PROC: 0JBP3ZZ Excision of Left Lower Leg Subcutaneous Tissue and Fascia, Percutaneous Approach (ICD-10-PCS; 2024-09-12)
DX: A41.9 Sepsis, unspecified organism (principal); J69.0 Pneumonitis due to inhalation of food and vomit; L89.623 Pressure ulcer of left heel, stage 3; R65.21 Severe sepsis with septic shock; J91.8 Pleural effusion in other conditions classified elsewhere; N17.8 Other acute kidney failure; L97.828 Non-pressure chronic ulcer of other part of left lower leg with other specified severity; J44.1 Chronic obstructive pulmonary disease with (acute) exacerbation; J10.1 Influenza due to other identified influenza virus with other respiratory manifestations; D64.9 Anemia, unspecified; I11.0 Hypertensive heart disease with heart failure; I50.9 Heart failure, unspecified; Z79.4 Long term (current) use of insulin; E78.49 Other hyperlipidemia; E03.8 Other specified hypothyroidism; R06.09 Other forms of dyspnea; R09.02 Hypoxemia; Z66 Do not resuscitate; E11.621 Type 2 diabetes mellitus with foot ulcer; L08.89 Other specified local infections of the skin and subcutaneous tissue; B96.5 Pseudomonas (aeruginosa) (mallei) (pseudomallei) as the cause of diseases classified elsewhere; Z74.01 Bed confinement status; I95.89 Other hypotension; D69.6 Thrombocytopenia, unspecified